=== PATIENT | female | born 1980 | race African-American/Black ===

== ENCOUNTER 2016-10-01 13:34 | Emergency (ER) | payer OTHER ==
[~2016-10-01] VITALS: Ht 152.4 cm; Wt 73.0 kg
[~2016-10-01 13:34] MED LIST: CLIN1CAP5 PO; HYDR-3533 PO; IBUP800T23 PO; METF-324 PO; MICO1CRE2 VAGINAL
[2016-10-01 13:36] VITALS: BP 128/80; PULSE 94; RESP 12; TEMP 98.1; O2SAT 99
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
[2016-10-01 16:00] LABS: AUTOMATED NEUTROPHIL # 2.8 TH/MM3 (1.8-7.7); BASOPHIL # 0.1 TH/MM3 (0-0.2); BASOPHIL % 1.7 % (0.0-2.0); EOSINOPHIL # 0.1 TH/MM3 (0-0.4); EOSINOPHIL % 1.4 % (0.0-4.0); HEMATOCRIT 41.6 % (35.0-46.0); HEMO FLAGS DIFF FINAL; LYMPH % 39.8 % (9.0-44.0); LYMPHOCYTE # 2.2 TH/MM3 (1.0-4.8); MEAN CELL VOLUME 86.3 FL (80.0-100.0); MEAN CORPUSCULAR HEMOGLOBIN 28.4 PG (27.0-34.0); MEAN CORPUSCULAR HGB CONC 32.9 % (32.0-36.0); MONO % 6.3 % (0.0-8.0); NEUT % 50.8 % (16.0-70.0); PLATELET COUNT 171 TH/MM3 (150-450); RED BLOOD COUNT 4.82 MIL/MM3 (4.00-5.30); RED CELL DISTRIBUTION WIDTH 13.6 % (11.6-17.2); WHITE BLOOD COUNT 5.5 TH/MM3 (4.0-11.0)
[2016-10-01 16:11] LABS: BLOOD, URINE NEG (NEG); GLUCOSE,URINE 1000 mg/dL (NEG); KETONE, URINE 10 mg/dL (NEG); NITRITE,URINE NEG (NEG); PH, URINE 5.5 (5.0-8.5); SQUAMOUS EPITHELIAL CELL URINE 1 /hpf (0-5); URINE COLOR COLORLESS (YELLW/STRAW)
[2016-10-01 16:12] LABS: COMMENT (UR) CULT NOT INDICATED; CULTURE IF INDICATED CULT NOT INDICATED
[2016-10-01 16:40] LABS: BICARBONATE 25.1 MEQ/L (21.0-32.0); POTASSIUM 4.5 MEQ/L (3.5-5.1)
[2016-10-01 16:51] VITALS: BP 154/99; PULSE 82; RESP 18; TEMP 99; O2SAT 98
[2016-10-01] MEDS ORDERED: ONDANSETRON HCL 4 MG/2 ML VIAL IV PUSH ONE (18:30)
[2016-10-01] MEDS ORDERED: INSULIN HUMAN REGULAR 1,000 UNITS/10 ML VIAL IV PUSH ONE (18:30)
[2016-10-01] MEDS ORDERED: SODIUM CHLOR 0.9% 1000 ML INJ 1,000 ML IV ONE ×2 (18:30→18:45)
[2016-10-01] MEDS ORDERED: KETOROLAC TROMETHAMINE 30 MG/ML (IVP) VIAL IV PUSH ONE (18:45)
--- NOTE | 2016-10-01 19:12 | PD ---
HPI Chief Complaint: Abdominal Pain Time Seen by Provider: 17:15 Travel History International Travel<30 days: No Contact w/Intl Traveler<30days: No Traveled to known affect area: No History of Present Illness HPI 36-year-old woman presents emergent Venus abdominal pain or back pain ongoing for the past several weeks, worsening over the last week or so. Increased voiding. Initially denied vaginal discharge, now describes she does have some vaginal discomfort a little bit of abnormal discharge. Pain is pretty diffuse. No diarrhea. No abdominal surgical service 2 previous C-sections. Sex active with men only, 3 partners in the past 6 months. No history of STDs. She has diabetes, was prescribed insulin and metformin, she's not been taking either one for months. She states she tried a couple shots of insulin couple days ago began feeling really helped. She does have any money for her glucometer. History Past Medical History Narrative Medical Hypertension Diabetes Bipolar LMP: 09/07 Menopausal: No : 5 Para: 4 Social History Alcohol Use: Yes (OCC) Tobacco Use: Yes (1 PPD) Allergies-Medications (Allergen,Severity, Reaction): Coded Allergies: Haloperidol (Verified Allergy, Severe, Swelling, 10/01/16) Latuda (Verified Allergy, Severe, 10/01/16) "TONGUE SWELLS UP""GET DELUSIONAL" Prolixin (Verified Allergy, Severe, SWELLING, 10/01/16) Prozac (Verified Allergy, Severe, Swelling, 10/01/16) *MDRO Multi-Drug Resistant Organism (Verified Adverse Reaction, Unknown, ) MRSA (groin-09/12/16) Reported Meds & Prescriptions Reported Meds & Active Scripts Active Lortab (Hydrocodone-Acetaminophen) 5-325 Mg Tab 1 Tab PO Q6H PRN Ibuprofen 800 Mg Tab 800 Mg PO Q8H PRN Monistat 3 Vaginal Cream (Miconazole 3 Vaginal Cream) 4 % Cream 1 Appl VAGINAL HS Clindamycin (Clindamycin HCl) 150 Mg Cap 300 Mg PO Q8HR Metformin ER 24 HR (Metformin HCl) 1,000 Mg Tab 1,000 Mg PO BIDPC Review of Systems Except as stated in HPI: all other systems reviewed are Neg Physical Exam Narrative GENERAL: 36 year-old woman, obese, no acute distress. SKIN: Warm and dry. HEAD: Atraumatic. Normocephalic. CARDIOVASCULAR: Regular rate and rhythm. No murmur appreciated. RESPIRATORY: No accessory muscle use. Clear to auscultation. Breath sounds equal bilaterally. GASTROINTESTINAL: Abdomen soft, non-tender, nondistended. Hepatic and splenic margins not palpable. MUSCULOSKELETAL: No obvious deformities. No clubbing. No cyanosis. No edema. NEUROLOGICAL: Awake and alert. No obvious cranial nerve deficits. Motor grossly within normal limits. Normal speech. PSYCHIATRIC: Appropriate mood and affect; insight and judgment normal. PELVIC: Normal external female genitalia. Scant white vaginal discharge. Minimal pelvic tenderness but no obvious cervical motion tenderness pelvic masses or uterine enlargement. Data Data Last Documented VS Vital Signs Date Time Temp Pulse Resp B/P Pulse Ox O2 Delivery O2 Flow Rate FiO2 10/01/16 16:51 99.0 82 18 154/99 98 Room Air Orders Urinalysis - C+S If Indicated (10/01/16 15:26) Ed Urine Pregnancytest Poc (10/01/16 15:26) Complete Blood Count With Diff (10/01/16 15:28) Basic Metabolic Panel (Bmp) (10/01/16 15:28) Sodium Chlor 0.9% 1000 Ml Inj (Ns 1000 M (10/01/16 18:30) Insulin Human Regular Inj (Novolin R Inj (10/01/16 18:30) Ondansetron Inj (Zofran Inj) (10/01/16 18:30) Ketorolac Inj (Toradol Inj) (10/01/16 18:45) Sodium Chlor 0.9% 1000 Ml Inj (Ns 1000 M (10/01/16 18:45) Gc And Chlamydia Pcr (10/01/16 18:43) Wet Prep Profile (10/01/16 18:43) Labs Laboratory Tests Test 10/01/16 15:40 White Blood Count 5.5 TH/MM3 Red Blood Count 4.82 MIL/MM3 Hemoglobin 13.7 GM/DL Hematocrit 41.6 % Mean Corpuscular Volume 86.3 FL Mean Corpuscular Hemoglobin 28.4 PG Mean Corpuscular Hemoglobin 32.9 % Concent Red Cell Distribution Width 13.6 % Platelet Count 171 TH/MM3 Mean Platelet Volume 9.8 FL Neutrophils (%) (Auto) 50.8 % Lymphocytes (%) (Auto) 39.8 % Monocytes (%) (Auto) 6.3 % Eosinophils (%) (Auto) 1.4 % Basophils (%) (Auto) 1.7 % Neutrophils # (Auto) 2.8 TH/MM3 Lymphocytes # (Auto) 2.2 TH/MM3 Monocytes # (Auto) 0.3 TH/MM3 Eosinophils # (Auto) 0.1 TH/MM3 Basophils # (Auto) 0.1 TH/MM3 CBC Comment DIFF FINAL Differential Comment Urine Color COLORLESS Urine Turbidity CLEAR Urine pH 5.5 Urine Specific [place] 1.026 Urine Protein NEG mg/dL Urine Glucose (UA) 1000 mg/dL Urine Ketones 10 mg/dL Urine Occult Blood NEG Urine Nitrite NEG Urine Bilirubin NEG Urine Urobilinogen LESS THAN 2.0 MG/DL Urine Leukocyte Esterase NEG Urine RBC LESS THAN 1 /hpf Urine WBC 3 /hpf Urine Squamous Epithelial 1 /hpf Cells Microscopic Urinalysis Comment CULT NOT INDICATED Sodium Level 127 MEQ/L Potassium Level 4.5 MEQ/L Chloride Level 92 MEQ/L Carbon Dioxide Level 25.1 MEQ/L Anion Gap 10 MEQ/L Blood Urea Nitrogen 9 MG/DL Creatinine 1.13 MG/DL Estimat Glomerular Filtration 66 ML/MIN Rate Random Glucose 658 MG/DL Calcium Level 9.3 MG/DL [facility] Medical Decision Making Medical Screen Exam Complete: Yes Emergency Medical Condition: Yes Interpretation(s) CBC unremarkable BMP remarkable for glucose 658 UA unremarkable Differential Diagnosis Abdominal pain, PID, UTI, dehydration, uncontrolled diabetes Narrative Course Medical decision making 36-year-old woman diabetes uncontrolled not taking her medications presents with diffuse pain including mostly the lower abdomen. Just with some vaginal discharge. She high risk for infection because of her uncontrolled diabetes. We'll check pelvic, insulin, IV fluids, reassess. Diagnosis Primary Impression: Diabetes Qualified Code: E11.65 - Type 2 diabetes mellitus with hyperglycemia, with long-term current use of insulin Additional Impression: Dehydration Med/Other Pt SpecificInfo: Prescription(s) given Condition: Jose Alberto Ji MD Oct 01, 2016 19:12
--- NOTE | 2016-10-01 19:26 | PD ---
Data Data Last Documented VS Vital Signs Date Time Temp Pulse Resp B/P Pulse Ox O2 Delivery O2 Flow Rate FiO2 10/01/16 21:04 73 18 160/90 98 10/01/16 16:51 99.0 Room Air Orders Urinalysis - C+S If Indicated (10/01/16 15:26) Ed Urine Pregnancytest Poc (10/01/16 15:26) Complete Blood Count With Diff (10/01/16 15:28) Basic Metabolic Panel (Bmp) (10/01/16 15:28) Sodium Chlor 0.9% 1000 Ml Inj (Ns 1000 M (10/01/16 18:30) Insulin Human Regular Inj (Novolin R Inj (10/01/16 18:30) Ondansetron Inj (Zofran Inj) (10/01/16 18:30) Ketorolac Inj (Toradol Inj) (10/01/16 18:45) Sodium Chlor 0.9% 1000 Ml Inj (Ns 1000 M (10/01/16 18:45) Gc And Chlamydia Pcr (10/01/16 18:43) Wet Prep Profile (10/01/16 18:43) Acetaminophen (Tylenol) (10/01/16 20:30) Labs Laboratory Tests Test 10/01/16 10/01/16 15:40 19:15 White Blood Count 5.5 TH/MM3 Red Blood Count 4.82 MIL/MM3 Hemoglobin 13.7 GM/DL Hematocrit 41.6 % Mean Corpuscular Volume 86.3 FL Mean Corpuscular Hemoglobin 28.4 PG Mean Corpuscular Hemoglobin 32.9 % Concent Red Cell Distribution Width 13.6 % Platelet Count 171 TH/MM3 Mean Platelet Volume 9.8 FL Neutrophils (%) (Auto) 50.8 % Lymphocytes (%) (Auto) 39.8 % Monocytes (%) (Auto) 6.3 % Eosinophils (%) (Auto) 1.4 % Basophils (%) (Auto) 1.7 % Neutrophils # (Auto) 2.8 TH/MM3 Lymphocytes # (Auto) 2.2 TH/MM3 Monocytes # (Auto) 0.3 TH/MM3 Eosinophils # (Auto) 0.1 TH/MM3 Basophils # (Auto) 0.1 TH/MM3 CBC Comment DIFF FINAL Differential Comment Urine Color COLORLESS Urine Turbidity CLEAR Urine pH 5.5 Urine Specific [place] 1.026 Urine Protein NEG mg/dL Urine Glucose (UA) 1000 mg/dL Urine Ketones 10 mg/dL Urine Occult Blood NEG Urine Nitrite NEG Urine Bilirubin NEG Urine Urobilinogen LESS THAN 2.0 MG/DL Urine Leukocyte Esterase NEG Urine RBC LESS THAN 1 /hpf Urine WBC 3 /hpf Urine Squamous Epithelial 1 /hpf Cells Microscopic Urinalysis Comment CULT NOT INDICATED Sodium Level 127 MEQ/L Potassium Level 4.5 MEQ/L Chloride Level 92 MEQ/L Carbon Dioxide Level 25.1 MEQ/L Anion Gap 10 MEQ/L Blood Urea Nitrogen 9 MG/DL Creatinine 1.13 MG/DL Estimat Glomerular Filtration 66 ML/MIN Rate Random Glucose 658 MG/DL Calcium Level 9.3 MG/DL Clue Cells (Wet Prep) NONE SEEN Vaginal Trichomonas (Wet Prep) NONE SEEN Vaginal Yeast (Wet Prep) NONE SEEN Chlamydia trachomatis DNA NOT DETECTED (PCR) Neisseria gonorrhoeae DNA NOT DETECTED (PCR) MDM Medical Record Reviewed: Yes Supervised Visit with TIFFANIE: No Narrative Course During the course of the patients emergency department visit, the patients history, examination, and differential diagnosis were reviewed with the patient. The patient had IV access obtained and blood work sent for analysis. The patient's case was checked out to me by Dr. Oliveira who requested that I review the patient's laboratory studies and continued to work on improving the patient's hyperglycemia related to medication noncompliance. The patient had a pelvic examination done by him prior to the conclusion of his shift. The patient was provided Toradol for her pelvic pain. The patient was given regular insulin 10 units IV 1 prior to my initial evaluation, normal saline was written to be administered 1 L bolus 2. The patients laboratory studies were reviewed and remarkable for a CBC that is unremarkable. CMP is remarkable for sodium of 127, chloride 92, creatinine 1.13 , glucose 658 which is most likely causing a pseudohyponatremia, urinalysis shows 1000 glucose 10 ketones, wet prep is negative, GC and chlamydia are negative. The patient's blood sugar began to improve. The patient's blood sugar came down to 160. She was given something to eat. The patient was also even Tylenol for reported back pain. The patient was instructed regarding the importance of following up with a primary care physician on a regular basis and taking her insulin and metformin on a regular basis. The patient was given a refill of metformin, insulin, an Accu-Chek machine was strips. The patient is resting comfortably and feels better, is alert and in no distress. The patients results and examination findings were discussed with her. The repeat examination is unremarkable and benign. The history, exam, diagnostic testing, and current condition do not suggest any significant pathology to warrant further testing, continued ED treatment, admission, or surgical evaluation at this point. The vital signs have been stable. The patient does not have uncontrollable pain, intractable vomiting, or other significant symptoms. The patient's condition is stable and appropriate for discharge. The patient will pursue further outpatient evaluation with a primary care physician or other designated or consulting physician as indicated in the discharge instructions. The patient expressed understanding and was agreeable with this plan. Diagnosis Primary Impression: Diabetes Qualified Code: E11.65 - Type 2 diabetes mellitus with hyperglycemia, with long-term current use of insulin Additional Impression: Dehydration Referrals: Primary Care Physician 2 days Patient Instructions: Dehydration (ED), Diabetic Hyperglycemia (ED), General Instructions Med/Other Pt SpecificInfo: Prescription(s) given Scripts Accu-Chek Strips Janie Plus 1 Paola Paola #90 STRIPS .XX DIRECTED Ref 0 Prov:Ernestina Flanagan MD 10/01/16 Accu-Chek Janie Glucose Monitor 1 Mis Mis #1 KIT .XX DIRECTED Ref 0 Prov:Ernestina Flanagan MD 10/01/16 Insulin Lispro (Human) Inj (Humalog Inj)1,000 Unit/10 Ml Vial1-9 Units SQ ac tid 30 Days Ref 0 Max dose at bedtime:( )units; sugars< 70,(0)units; sugars 150-199,(1)unit; sugars 200-249,(3)units; sugars 250-299,(5)units; sugars 300-349,(7)units; sugars more than 349,(9)units. Prov:Ernestina Flanagan MD 10/01/16 Metformin 1,000 Mg Tab1,000 Mg PO BIDPC #60 TAB Ref 0 With meals Prov:Ernestina Flanagan MD 10/01/[address] (Naproxen EC)500 Mg [id number] Mg PO BID PRN (PAIN GREATER THAN 5) # 10 TAB Ref 0 Prov:Ernestina Flanagan MD 10/01/16 Disposition: 01 DISCHARGE HOME Condition: Stable Ernestina Flanagan MD Oct 01, 2016 19:26
[2016-10-01] MEDS ORDERED: ACETAMINOPHEN 325 MG TAB PO ONE (20:30)
[2016-10-01] MEDS ORDERED: NAPR1TAB34 PO (20:32)
[2016-10-01] MEDS ORDERED: HUMALOG SQ (20:36)
[2016-10-01] MEDS ORDERED: METF1000 PO (20:36)
[2016-10-01 21:04] VITALS: BP 160/90
[2016-10-01] MEDS ORDERED: BLOO1MIS29 (21:05)
[2016-10-01] MEDS ORDERED: ACCUTES19 (21:09)
[2016-10-01 21:41] LABS: CHLAMYDIA PCR NOT DETECTED (NOT DETECT); NEISSERIA PCR NOT DETECTED (NOT DETECT)
== END 2016-10-01 21:21 | disposition home or self-care (01) ==
LOC: NEPE 13:34
DX: E11.9 Type 2 diabetes mellitus without complications (principal); E86.0 Dehydration; I10 Essential (primary) hypertension; F17.210 Nicotine dependence, cigarettes, uncomplicated; F12.90 Cannabis use, unspecified, uncomplicated; F14.90 Cocaine use, unspecified, uncomplicated
CPT/HCPCS: 80048; 81001; 84703; 85025; 87210; 87491; 87591; 96361; 96374; 96375; 99284; J1815; J1885; J2405; J7030

== ENCOUNTER 2017-06-08 18:11 | Emergency (ER) | payer OTHER ==
[~2017-06-08] VITALS: Ht 154.9 cm; Wt 70.2 kg
[~2017-06-08 18:11] MED LIST changes: +ACCUTES19; +BLOO1MIS29; +HUMALOG SQ; -METF-324 PO; +METF1000 PO; +NAPR1TAB34 PO
[2017-06-08 18:12] VITALS: BP 149/95; PULSE 86; RESP 20; TEMP 98.7; O2SAT 100
[2017-06-08] MEDS ORDERED: PSYCH MEDS (18:34)
[2017-06-08] MEDS ORDERED: SODIUM CHLOR 0.9% 1000 ML INJ 1,000 ML IV SCH (18:48)
[2017-06-08] MEDS ORDERED: ONDANSETRON HCL 4 MG/2 ML VIAL IVP ONE (19:00)
[2017-06-08] MEDS ORDERED: MORPHINE SULFATE 4 MG/ML INJ IV PUSH ONE ×2 (19:00→22:00)
[2017-06-08 19:05] VITALS: RESP 19; O2SAT 96
[2017-06-08 19:25] LABS: AUTOMATED NEUTROPHIL # 3.9 TH/MM3 (1.8-7.7); BASOPHIL # 0.1 TH/MM3 (0-0.2); BASOPHIL % 0.8 % (0.0-2.0); EOSINOPHIL # 0.1 TH/MM3 (0-0.4); EOSINOPHIL % 1.3 % (0.0-4.0); HEMO FLAGS DIFF FINAL; LYMPH % 45.8 % (9.0-44.0); LYMPHOCYTE # 3.8 TH/MM3 (1.0-4.8); MEAN CELL VOLUME 85.8 FL (80.0-100.0); MONO % 5.2 % (0.0-8.0); NEUT % 46.9 % (16.0-70.0); PLATELET COUNT 199 TH/MM3 (150-450); RED BLOOD COUNT 4.89 MIL/MM3 (4.00-5.30); RED CELL DISTRIBUTION WIDTH 12.7 % (11.6-17.2); WHITE BLOOD COUNT 8.3 TH/MM3 (4.0-11.0)
[2017-06-08 19:28] LABS: BLOOD, URINE NEG (NEG); COMMENT (UR) CULT NOT INDICATED; CULTURE IF INDICATED CULT NOT INDICATED; GLUCOSE,URINE NEG (NEG); KETONE, URINE NEG (NEG); NITRITE,URINE NEG (NEG); PH, URINE 6.5 (5.0-8.5); SQUAMOUS EPITHELIAL CELL URINE 1 /hpf (0-5); URINE COLOR LIGHT-YELLOW (YELLW/STRAW)
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
[2017-06-08] MEDS ORDERED: cefTRIAXone INJ 1,000 MG in SODIUM CHLORIDE 0.9% INJ 100 ML IV ONE (20:15)
[2017-06-08] MEDS ORDERED: AZITHROMYCIN INJ 500 MG in SODIUM CHLOR 0.9% 250 ML INJ 250 ML IV ONE (20:15)
--- NOTE | 2017-06-08 20:17 | PD ---
HPI Chief Complaint: Medical Clearance Time Seen by Provider: 18:31 Travel History International Travel<30 days: No Contact w/Intl Traveler<30days: No Traveled to known affect area: No History of Present Illness HPI 36-year-old female that presents to the ED for evaluation of multiple complaints. For the most part her main complaint is neck pain and headache as well as back pain with body aches since 3 weeks now. Per patient nothing makes it better. Per patient the pain is severe and 7 out of 10. States that she's been having some congestion but no cough. No urinary symptoms. She states having some abdominal pain and some diarrhea on occasion. She has a significant history of psychiatric illness including schizophrenia and bipolar and takes medications including lithium. Per patient she's been having to urinate more frequently but denies any dysuria. She denies any bowel movement issues. Denies any blurry vision or double vision. She has not seen anybody for this. She denies any recent travel. No blurry vision or double vision. No leg pain or arm pain but states having body aches all over. Denies any fevers chills or sweats. She does have multiple allergies to medications for psychiatric illnesses. PFSH Past Medical History Blood Disorders: Yes Anxiety: Yes Depression: Yes Heart Rhythm Problems: No Cancer: No Cardiovascular Problems: Yes (HTN) High Cholesterol: No Chemotherapy: No Chest Pain: No Congestive Heart Failure: No Diabetes: Yes Patient Takes Glucophage: Yes (METFORMIN ) Diminished Hearing: No Endocrine: No Gastrointestinal Disorders: Yes (GALLSTONES) Genitourinary: No Hypertension: Yes Immune Disorder: No Implanted Vascular Access Dvce: No Kidney Stones: Yes Musculoskeletal: No Neurologic: No Psychiatric: Yes Reproductive: No Immunizations Current: Yes Radiation Therapy: No Schizophrenia: Yes Thyroid Disease: No ?: Unknown LMP: 2 MONTHS AGO Menopausal: No : 5 Para: 4 Miscarriage: 1 : 0 Past Surgical History Section: Yes (One in 2004, 2013) Genitourinary Surgery: Yes (2004-Kidney stones) Gynecologic Surgery: Yes (c section with third AND 4TH ) Other Surgery: Yes (see H/ P) Social History Alcohol Use: Yes (OCC) Tobacco Use: Yes (1 PPD) Substance Use: Yes (MARIJUANA AND COCAINE) Allergies-Medications (Allergen,Severity, Reaction): Coded Allergies: fluoxetine (Unverified Allergy, Severe, Swelling, 06/08/17) fluphenazine (Unverified Allergy, Severe, SWELLING, 06/08/17) haloperidol (Unverified Allergy, Severe, Swelling, 06/08/17) lurasidone (Unverified Allergy, Severe, 06/08/17) "TONGUE SWELLS UP""GET DELUSIONAL" *MDRO Multi-Drug Resistant Organism (Verified Adverse Reaction, Unknown, ) 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 Metformin (Metformin HCl) 1,000 Mg Tab 1,000 Mg PO BIDPC With meals Ibuprofen 800 Mg Tab 800 Mg PO Q8H PRN Reported [Psych Meds ] Review of Systems Except as stated in HPI: all other systems reviewed are Neg Physical Exam Narrative GENERAL: SKIN: Warm and dry. HEAD: Atraumatic. Normocephalic. EYES: Pupils equal and round. No scleral icterus. No injection or drainage. ENT: No nasal bleeding or discharge. Mucous membranes pink and moist. Tongue is midline. No uvula deviation. TMs are clear with no sign of infection or perforation. NECK: Trachea midline. No JVD. CARDIOVASCULAR: Regular rate and rhythm. No murmurs, S3, S4. RESPIRATORY: No accessory muscle use. Clear to auscultation. Breath sounds equal bilaterally. GASTROINTESTINAL: Abdomen soft, mild tenderness to palpation on the abdomen throughout., nondistended. Hepatic and splenic margins not palpable. MUSCULOSKELETAL: Extremities without clubbing, cyanosis, or edema. No obvious deformities. Full range of motion of the upper and lower extremities bilaterally. 2+ pulses bilaterally. Patient does appear to have some tenderness to palpation on the lower back and on the spinal processes. She is able to move the neck fully and does not appear to be in acute distress. Straight leg test negative bilaterally. NEUROLOGICAL: Awake and alert. No obvious cranial nerve deficits. Motor grossly within normal limits. Five out of 5 muscle strength in the arms and legs. Normal speech. PSYCHIATRIC: Appropriate mood and affect; insight and judgment normal. Data Data Last Documented VS Vital Signs Date Time Temp Pulse Resp B/P (MAP) Pulse Ox O2 Delivery O2 Flow Rate FiO2 06/08/17 22:16 65 16 142/94 (110) 100 Room Air 06/08/17 18:12 98.7 Orders Orders Complete Blood Count With Diff (06/08/17 18:44) Comprehensive Metabolic Panel (06/08/17 18:44) Blood Culture (06/08/17 18:44) Lipase (06/08/17 18:44) Urinalysis - C+S If Indicated (06/08/17 18:44) Magnesium (Mg) (06/08/17 18:44) Olar (Li) (06/08/17 18:44) Thyroid Stimulating Hormone (06/08/17 18:44) Chest, Single Ap (06/08/17 18:44) Ct Abd/Pel W Iv Contrast(Rout) (06/08/17 18:44) Iv Access Insert/Monitor (06/08/17 18:44) Ecg Monitoring (06/08/17 18:44) Oximetry (06/08/17 18:44) Lactic Acid (06/08/17 18:44) Spine, Cervical - Ltd (Ap&Lat) (06/08/17 ) Spine, Thoracic - Lateral Only (06/08/17 ) Spine, Lumbar - Ltd (Ap & Lat) (06/08/17 ) Ct Brain W/O Iv Contrast(Rout) (06/08/17 ) Morphine Inj (Morphine Inj) (06/08/17 19:00) Ondansetron Inj (Zofran Inj) (06/08/17 19:00) Sodium Chlor 0.9% 1000 Ml Inj (Ns 1000 M (06/08/17 18:48) Ceftriaxone Inj (Rocephin Inj) (06/08/17 20:15) Azithromycin Inj (Zithromax Inj) (06/08/17 20:15) Ed Urine Pregnancytest Poc (06/08/17 20:17) Morphine Inj (Morphine Inj) (06/08/17 22:00) Labs Laboratory Tests Test 06/08/17 18:30 06/08/17 18:45 06/08/17 19:40 06/08/17 21:20 Urine Color LIGHT-YELLOW Urine Turbidity CLEAR Urine pH 6.5 Urine Specific [place] 1.005 Urine Protein NEG mg/dL Urine Glucose (UA) NEG mg/dL Urine Ketones NEG mg/dL Urine Occult Blood NEG Urine Nitrite NEG Urine Bilirubin NEG Urine Urobilinogen LESS THAN 2.0 MG/DL Urine Leukocyte Esterase NEG Urine RBC LESS THAN 1 /hpf Urine WBC LESS THAN 1 /hpf Urine Squamous Epithelial Cells 1 /hpf Microscopic Urinalysis Comment CULT NOT INDICATED White Blood Count 8.3 TH/MM3 Red Blood Count 4.89 MIL/MM3 Hemoglobin 14.7 GM/DL Hematocrit 42.0 % Mean Corpuscular Volume 85.8 FL Mean Corpuscular Hemoglobin 30.0 PG Mean Corpuscular Hemoglobin Concent 35.0 % Red Cell Distribution Width 12.7 % Platelet Count 199 TH/MM3 Mean Platelet Volume 9.7 FL Neutrophils (%) (Auto) 46.9 % Lymphocytes (%) (Auto) 45.8 % Monocytes (%) (Auto) 5.2 % Eosinophils (%) (Auto) 1.3 % Basophils (%) (Auto) 0.8 % Neutrophils # (Auto) 3.9 TH/MM3 Lymphocytes # (Auto) 3.8 TH/MM3 Monocytes # (Auto) 0.4 TH/MM3 Eosinophils # (Auto) 0.1 TH/MM3 Basophils # (Auto) 0.1 TH/MM3 CBC Comment DIFF FINAL Differential Comment Lactic Acid Level 1.3 mmol/L Olar Level 0.2 MEQ/L Total Protein 8.2 GM/DL Alkaline Phosphatase 59 U/L Total Bilirubin 0.5 MG/DL Thyroid Stimulating Hormone 3rd Gen 0.821 uIU/ML MDM Medical Decision Making Medical Screen Exam Complete: Yes Emergency Medical Condition: Yes Medical Record Reviewed: Yes Interpretation(s) CBC Diagram 06/08/17 18:45 Differential Diagnosis Chest pain versus back pain versus acute on chronic pain versus nausea and vomiting versus acute abdomen versus pneumonia versus viral illness versus dehydration versus normal exam Narrative Course 36-year-old female that presents to the ED for evaluation of back pain and body aches as well as headache and diarrhea and abdominal pain. Patient was properly examined and was found to have signs and symptoms which appeared to be more consistent with likely viral illness. I suspect some of her issues might be psychiatric related but she does appear to be somewhat tender on exam. Especially in the abdomen. Labs and imaging were ordered. Patient was given IV pain medications and fluids. Labs and imaging still pending at the time of writing this note. CXR did show so far pneumonia and patient was started on IV antibiotics by me. Case signed out to my attending pending disposition. Philip Jin Jun 08, 2017 20:17
[2017-06-08 20:27] VITALS: BP 135/77; PULSE 77; RESP 18; O2SAT 100
[2017-06-08 22:16] VITALS: BP 142/94; PULSE 65; RESP 16; O2SAT 100
[2017-06-08] MEDS ORDERED: IBUP-232 PO (23:03)
[2017-06-08] MEDS ORDERED: CEFU1TAB20 PO (23:03)
[2017-06-08] MEDS ORDERED: ZITH250T PO (23:03)
--- NOTE | 2017-06-08 23:04 | PD ---
Data Data Last Documented VS Vital Signs Date Time Temp Pulse Resp B/P (MAP) Pulse Ox O2 Delivery O2 Flow Rate FiO2 06/08/17 22:16 65 16 142/94 (110) 100 Room Air 06/08/17 18:12 98.7 Orders Orders Complete Blood Count With Diff (06/08/17 18:44) Comprehensive Metabolic Panel (06/08/17 18:44) Blood Culture (06/08/17 18:44) Lipase (06/08/17 18:44) Urinalysis - C+S If Indicated (06/08/17 18:44) Magnesium (Mg) (06/08/17 18:44) [place] (Li) (06/08/17 18:44) Thyroid Stimulating Hormone (06/08/17 18:44) Chest, Single Ap (06/08/17 18:44) Ct Abd/Pel W Iv Contrast(Rout) (06/08/17 18:44) Iv Access Insert/Monitor (06/08/17 18:44) Ecg Monitoring (06/08/17 18:44) Oximetry (06/08/17 18:44) Lactic Acid (06/08/17 18:44) Spine, Cervical - Ltd (Ap&Lat) (06/08/17 ) Spine, Thoracic - Lateral Only (06/08/17 ) Spine, Lumbar - Ltd (Ap & Lat) (06/08/17 ) Ct Brain W/O Iv Contrast(Rout) (06/08/17 ) Morphine Inj (Morphine Inj) (06/08/17 19:00) Ondansetron Inj (Zofran Inj) (06/08/17 19:00) Sodium Chlor 0.9% 1000 Ml Inj (Ns 1000 M (06/08/17 18:48) Ceftriaxone Inj (Rocephin Inj) (06/08/17 20:15) Azithromycin Inj (Zithromax Inj) (06/08/17 20:15) Ed Urine Pregnancytest Poc (06/08/17 20:17) Morphine Inj (Morphine Inj) (06/08/17 22:00) Iohexol 350 Inj (Omnipaque 350 Inj) (06/08/17 23:44) Labs Laboratory Tests Test 06/08/17 18:30 06/08/17 18:45 06/08/17 19:40 06/08/17 21:20 Urine Color LIGHT-YELLOW Urine Turbidity CLEAR Urine pH 6.5 Urine Specific [place] 1.005 Urine Protein NEG mg/dL Urine Glucose (UA) NEG mg/dL Urine Ketones NEG mg/dL Urine Occult Blood NEG Urine Nitrite NEG Urine Bilirubin NEG Urine Urobilinogen LESS THAN 2.0 MG/DL Urine Leukocyte Esterase NEG Urine RBC LESS THAN 1 /hpf Urine WBC LESS THAN 1 /hpf Urine Squamous Epithelial Cells 1 /hpf Microscopic Urinalysis Comment CULT NOT INDICATED White Blood Count 8.3 TH/MM3 Red Blood Count 4.89 MIL/MM3 Hemoglobin 14.7 GM/DL Hematocrit 42.0 % Mean Corpuscular Volume 85.8 FL Mean Corpuscular Hemoglobin 30.0 PG Mean Corpuscular Hemoglobin Concent 35.0 % Red Cell Distribution Width 12.7 % Platelet Count 199 TH/MM3 Mean Platelet Volume 9.7 FL Neutrophils (%) (Auto) 46.9 % Lymphocytes (%) (Auto) 45.8 % Monocytes (%) (Auto) 5.2 % Eosinophils (%) (Auto) 1.3 % Basophils (%) (Auto) 0.8 % Neutrophils # (Auto) 3.9 TH/MM3 Lymphocytes # (Auto) 3.8 TH/MM3 Monocytes # (Auto) 0.4 TH/MM3 Eosinophils # (Auto) 0.1 TH/MM3 Basophils # (Auto) 0.1 TH/MM3 CBC Comment DIFF FINAL Differential Comment Lactic Acid Level 1.3 mmol/L [place] Level 0.2 MEQ/L Blood Urea Nitrogen 9 MG/DL Creatinine 0.60 MG/DL Random Glucose 90 MG/DL Total Protein 6.7 GM/DL Albumin 3.0 GM/DL Calcium Level 8.2 MG/DL Magnesium Level 1.7 MG/DL Alkaline Phosphatase 57 U/L Aspartate Amino Transf (AST/SGOT) 20 U/L Alanine Aminotransferase (ALT/SGPT) 24 U/L Total Bilirubin 0.4 MG/DL Sodium Level 139 MEQ/L Potassium Level 4.1 MEQ/L Chloride Level 107 MEQ/L Carbon Dioxide Level 24.6 MEQ/L Anion Gap 7 MEQ/L Estimat Glomerular Filtration Rate 138 ML/MIN Lipase 251 U/L Thyroid Stimulating Hormone 3rd Gen 1.250 uIU/ML [facility] Medical Record Reviewed: Yes Supervised Visit with TIFFANIE: No Interpretation(s) Last Impressions Chest X-Ray 06/08/17 [id number] Signed Impressions: Service Date/Time: Thursday, June 08, 2017 19:00 - CONCLUSION: Mild streaky opacity projected over the right lung base which could represent infiltrate and possible pneumonia. Andi Ny MD Thoracic Spine X-Ray 06/08/17 0000 Signed Impressions: Service Date/Time: Thursday, June 08, 2017 19:08 - CONCLUSION: Lateral exam demonstrate no acute fracture. Andi Ny MD Lumbar Spine X-Ray 06/08/17 0000 Signed Impressions: Service Date/Time: Thursday, June 08, 2017 19:05 - CONCLUSION: Negative trauma study. Andi Ny MD Cervical Spine X-Ray 06/08/17 0000 Signed Impressions: Service Date/Time: Thursday, June 08, 2017 18:59 - CONCLUSION: 1. No acute fracture or malalignment. 2. Degenerative disc change at C4-5 through C6-7 levels. 3. Mild reversal of the normal cervical lordosis. Andi Ny MD Narrative Course During the course of the patients emergency department visit, the patients history, examination, and differential diagnosis were reviewed with the patient. The patient had IV access obtained and blood work sent for analysis. The patient was placed on a plant inspector with oximetry and blood pressure monitoring. The patient was initially seen by Juan Diego, the physician assistant curator. Please see his complete history and physical. The patient's case is checked out to me at the conclusion of this shift with chemistry pending and CT scan of the abdomen and pelvis pending. The patient was initially provided by Philip, Rocephin 1 g IV, Zithromax 500 IV for pneumonia noted on chest x-ray, morphine and Zofran for pain and nausea. Was given normal saline 1 L IV fluid bolus. The patients laboratory studies were reviewed and remarkable for a white count of 8.3, hemoglobin 14.7, platelets 199 with 45.8 lymphocytes, lactic acid is 1.3 , urinalysis is within normal, lithium level 0.2, CMP is unremarkable. Radiology studies were reviewed and remarkable for a chest x-ray that shows mild streaky opacity projected over the right lung base which could represent an infiltrate and possible pneumonia. Cervical spine x-rays revealed no acute fracture or malalignment, degenerative changes are noted. Thoracic spine x- rays lateral exam demonstrate no acute fracture. Lumbar spine x-rays showed no acute abnormality. CT scan of the brain shows no acute intracranial abnormality , mild soft tissue swelling left parietal scalp, CT scan of the abdomen and pelvis shows no acute findings within the abdomen and pelvis. Specifically no obstruction, free fluid or free air, intrauterine device present, mild fatty liver, chronic cystic change in the medial right lung base with opacity that is stable, consideration includes a congenital type of pulmonary sequestration. The patient will be discharged home with a prescription for Ceftin, azithromycin , and ibuprofen for pain. The patient is resting comfortably and feels better, is alert and in no distress. The patients results and examination findings were discussed with the patient. The repeat examination is unremarkable and benign. The history, exam, diagnostic testing, and current condition do not suggest any significant pathology to warrant further testing, continued ED treatment, admission, or surgical evaluation at this point. The vital signs have been stable. The patient does not have uncontrollable pain, intractable vomiting, or other significant symptoms. The patient's condition is stable and appropriate for discharge. The patient will pursue further outpatient evaluation with a primary care physician or other designated or consulting physician as indicated in the discharge instructions. The patient expressed understanding and was agreeable with this plan. Diagnosis Primary Impression: Pneumonia Qualified Codes: J18.1 - Lobar pneumonia, unspecified organism Referrals: [facility] Primary Care Physician 3 days Patient Instructions: Community Acquired Pneumonia (ED), General Instructions Med/Other Pt SpecificInfo: Prescription(s) given Scripts Cefuroxime (Cefuroxime) 500 Mg Tab 500 MG PO BID for Infection, #20 TAB 0 Refills Prov: Ernestina Flanagan MD 06/08/17 Azithromycin (Zithromax) 250 Mg Tab 250 MG PO DAILY for Infection, #4 TAB 0 Refills Prov: Ernestina Flanagan MD 06/08/17 Ibuprofen (Ibuprofen) 600 Mg Tab 600 MG PO Q8H Y for PAIN, #12 TAB 0 Refills Prov: Ernestina Flanagan MD 06/08/17 Disposition: 01 DISCHARGE HOME Condition: Stable Ernestina Flanagan MD Jun 08, 2017 23:04
[2017-06-08 23:25] LABS: ANION GAP 7 MEQ/L (5-15); AST (GOT) 20 U/L (15-37); BICARBONATE 24.6 MEQ/L (21.0-32.0); BLOOD UREA NITROGEN 9 MG/DL (7-18); CHLORIDE 107 MEQ/L (98-107); GLOMERULAR FILTRATION RATE 138 ML/MIN (>89); MAGNESIUM 1.7 MG/DL (1.5-2.5); POTASSIUM 4.1 MEQ/L (3.5-5.1); SODIUM (NA) 139 MEQ/L (136-145)
[2017-06-08 23:40] LABS: ALKALINE PHOSPHATASE 57 U/L (45-117)
[2017-06-08 23:41] LABS: ALT (GPT) 24 U/L (10-53)
[2017-06-08 23:42] LABS: TOTAL BILIRUBIN ADULT 0.4 MG/DL (0.2-1.0)
[2017-06-08] MEDS ORDERED: IOHEXOL 350 MG/ML 10 ML VIAL (for RAD DIAG) IVCONTRAST ONE (23:44)
--- NOTE | 2017-06-08 23:54 | RADRPT ---
EXAM DATE/TIME: 06/08/2017 23:46 [facility] COMPARISON: No previous studies available for comparison. INDICATIONS : Worsening head pain over several weeks. RADIATION DOSE: 47.75 CTDIvol (mGy) MEDICAL HISTORY : Cardiovascular disease. Hypertension. Renal calculi.Diabetes. SURGICAL HISTORY : section. ENCOUNTER: Initial ACUITY: 2 weeks PAIN SCALE: 10/10 LOCATION: cranial TECHNIQUE: Multiple contiguous axial images were obtained of the head. Using automated exposure control and adj ustment of the mA and/or kV according to patient size, radiation dose was kept as low as reasonably a chievable to obtain optimal diagnostic quality images. DICOM format image data is available electro nically for review and comparison. FINDINGS: CEREBRUM: The ventricles are normal for age. No evidence of midline shift, mass lesion, hemorrhage or acute in farction. No extra-axial fluid collections are seen. POSTERIOR FOSSA: The cerebellum and brainstem are intact. The 4th ventricle is midline. The cerebellopontine angle i s unremarkable. EXTRACRANIAL: The visualized portion of the orbits is intact. SKULL: The calvaria is intact. No evidence of skull fracture. CONCLUSION: 1. No acute intracranial abnormalities. Mild soft tissue swelling left parietal scalp. Sukumar Boateng MD on June 08, 2017 at 23:50 Board Certified Radiologist. This report was verified electronically.
--- NOTE | 2017-06-09 00:22 | RADRPT ---
EXAM DATE/TIME: 06/08/2017 23:49 [facility] COMPARISON: No previous studies available for comparison. INDICATIONS : Abdominal pain with nausea and vomiting. IV CONTRAST: 95 cc Omnipaque 350 (iohexol) IV ORAL CONTRAST: No oral contrast ingested. RADIATION DOSE: 7.63 CTDIvol (mGy) MEDICAL HISTORY : Cardiovascular disease. Hypertension. Renal calculi.Diabetes. SURGICAL HISTORY : section. ENCOUNTER: Initial ACUITY: 4 - 6 days PAIN SCALE: 10/10 LOCATION: Bilateral abdomen TECHNIQUE: Volumetric scanning of the abdomen and pelvis was performed. Using automated exposure control and ad justment of the mA and/or kV according to patient size, radiation dose was kept as low as reasonably achievable to obtain optimal diagnostic quality images. DICOM format image data is available electro nically for review and comparison. FINDINGS: Lipase is demonstrated chronic cystic changes and soft tissue density medial right lung base. Finding s similar to multiple prior other CT examinations. A pulmonary sequestration can give this appearance . Left lung bases clear except minimal atelectasis. Fatty liver. Spleen, adrenals, left kidney and pancreas unremarkable. Tiny nonobstructing right renal calculus. No free fluid. No bowel obstruction. No adenopathy. Intrauterine device is present. Appendix appears normal. CONCLUSION: 1. No acute findings within the abdomen and pelvis. Specifically no obstruction, free fluid or free a ir. Intrauterine device present. Mild fatty liver. Chronic cystic changes medial right lung base with opacity, stable. Consideration includes an congeni ba type pulmonary sequestration. Sukumar Boateng MD on June 09, 2017 at 0:15 Board Certified Radiologist. This report was verified electronically.
[2017-06-09 00:51] VITALS: BP 137/94
== END 2017-06-09 01:01 | disposition home or self-care (01) ==
LOC: NEPE 18:11
DX: J18.1 Lobar pneumonia, unspecified organism (principal); I10 Essential (primary) hypertension; E11.9 Type 2 diabetes mellitus without complications; F17.210 Nicotine dependence, cigarettes, uncomplicated; Z87.442 Personal history of urinary calculi
CPT/HCPCS: 70450; 71010; 72020; 72040; 72100; 74177; 80053; 80178; 81001; 83605; 83690; 83735; 84443; 84703; 85025; 87040; 96361; 96365; 96367; 96375; 96376; 99285; J0456; J0696; J2270; J2405; J7030; J7050; Q9967

== ENCOUNTER 2017-07-28 20:53 | Emergency (ER) | payer OTHER ==
[~2017-07-28 20:53] MED LIST changes: -BLOO1MIS29; +CEFU1TAB20 PO; -CLIN1CAP5 PO; -HYDR-3533 PO; +IBUP-232 PO; -IBUP800T23 PO; -MICO1CRE2 VAGINAL; -NAPR1TAB34 PO; +PSYCH MEDS; +ZITH250T PO
[2017-07-28 20:54] VITALS: BP 160/91; PULSE 88; RESP 18; O2SAT 98
[2017-07-28] MEDS ORDERED: TETANUS/DIPHTHERIA TOXOID ADULT 0.5 ML VIAL IM ONE (22:30)
[2017-07-28] MEDS ORDERED: SODIUM CHLORIDE 0.9% FLUSH 10 ML FLUSH IVF PRN (22:30)
[2017-07-28] MEDS ORDERED: MORPHINE SULFATE 4 MG/ML INJ IV PUSH ONE (22:30)
[2017-07-28] MEDS ORDERED: LIDOCAINE HCL 1% 20 ML VIAL INFIL ONE (22:30)
[2017-07-28] MEDS ORDERED: ONDANSETRON HCL 4 MG/2 ML VIAL IV PUSH ONE (22:30)
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
[2017-07-28] MEDS ORDERED: AUGM875T3 PO (23:14)
[2017-07-28] MEDS ORDERED: NORC5TAB PO (23:14)
[2017-07-28] MEDS ORDERED: MORPHINE SULFATE 4 MG/ML INJ IM ONE (23:15)
[2017-07-28] MEDS ORDERED: ONDANSETRON ODT 4 MG TAB PO ONE (23:15)
[2017-07-28] MEDS ORDERED: LIDOCAINE 1%/EPINEPHrine 1:100,000 SOLN 20 ML VIAL ONE (23:39)
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
== END 2017-07-29 02:58 | disposition home or self-care (01) ==
LOC: NEPD 20:53
DX: S01.511A Laceration without foreign body of lip, initial encounter (principal); S00.11XA Contusion of right eyelid and periocular area, initial encounter; I10 Essential (primary) hypertension; E11.9 Type 2 diabetes mellitus without complications; F20.9 Schizophrenia, unspecified; Y33.XXXA Other specified events, undetermined intent, initial encounter; Z72.0 Tobacco use; Z23 Encounter for immunization
CPT/HCPCS: 12011; 70450; 70486; 73130; 90471; 90714; 96374; 99285; J2270

== ENCOUNTER 2017-08-12 08:24 | Emergency (ER) | payer OTHER ==
[~2017-08-12] VITALS: Ht 152.4 cm; Wt 70.0 kg
[~2017-08-12 08:24] MED LIST changes: +AUGM875T3 PO; -CEFU1TAB20 PO; -IBUP-232 PO; +NORC5TAB PO; -ZITH250T PO
[2017-08-12 08:26] VITALS: BP 150/93; PULSE 95; RESP 16; TEMP 98.6; O2SAT 98
--- NOTE | 2017-08-12 08:34 | PD ---
HPI Chief Complaint: Foreign Body Time Seen by Provider: 08:32 Travel History International Travel<30 days: No Contact w/Intl Traveler<30days: No Traveled to known affect area: No History of Present Illness HPI 36-year-old female presents to the emergency department complaining of a tampon being stuck in her vagina for approximately 8-10 hours. Patient states that she had a tampon placed last night and as been unable to remove it since then. States that she has tried a couple of objects to include a spoon handle to remove the object. Patient denies pain, fever, chills, abdominal pain, urinary discomfort at this time. States that this is never happened before. She is currently on her menstrual cycle. PFSH Past Medical History Blood Disorders: Yes Anxiety: Yes Depression: Yes Heart Rhythm Problems: No Cancer: No Cardiovascular Problems: Yes (HTN) High Cholesterol: No Chemotherapy: No Chest Pain: No Congestive Heart Failure: No Diabetes: Yes Diminished Hearing: No Endocrine: No Gastrointestinal Disorders: Yes (GALLSTONES) Genitourinary: No Hypertension: Yes Immune Disorder: No Implanted Vascular Access Dvce: No Kidney Stones: Yes Musculoskeletal: No Neurologic: No Psychiatric: Yes Reproductive: No Immunizations Current: Yes Radiation Therapy: No Schizophrenia: Yes Thyroid Disease: No ?: Not Menopausal: No : 5 Para: 4 Miscarriage: 1 : 0 Past Surgical History Section: Yes (One in 2004, 2013) Genitourinary Surgery: Yes (2004-Kidney stones) Gynecologic Surgery: Yes (c section with third AND 4TH ) Other Surgery: Yes (see H/ P) Social History Alcohol Use: Yes (OCC) Tobacco Use: Yes (1 PPD) Substance Use: Yes (MARIJUANA AND COCAINE) Allergies-Medications (Allergen,Severity, Reaction): Coded Allergies: fluoxetine (Verified Allergy, Severe, Swelling, 08/12/17) fluphenazine (Verified Allergy, Severe, SWELLING, 08/12/17) haloperidol (Verified Allergy, Severe, Swelling, 08/12/17) lurasidone (Verified Allergy, Severe, 08/12/17) "TONGUE SWELLS UP""GET DELUSIONAL" *MDRO Multi-Drug Resistant Organism (Verified Adverse Reaction, Unknown, 08/12/17) MRSA (groin-09/12/16) Reported Meds & Prescriptions Reported Meds & Active Scripts Active Metronidazole Vaginal Gel 0.75 % Gel 1 Appl VAGINAL HS 5 Days [place] (Hydrocodone-Acetaminophen) 5 Mg-325 Mg Tab 1 Tab PO Q4H PRN Augmentin (Amoxicillin-Clavulanate) 875-125 Mg Tab 1 Tab PO BID Accu-Chek Strips Janie Plus (Blood Glucose Test Strips) 1 Paola Paola 1 Strips .XX DIRECTED Humalog Inj (Insulin Human Lispro) 1,000 Unit/10 Ml Vial 1-9 Units SQ AC TID 30 Days Max dose at bedtime:( )units; sugars< 70,(0)units; sugars 150-199,(1)unit; sugars 200-249,(3)units; sugars 250-299,(5)units; sugars 300-349,(7)units; sugars more than 349,(9)units. Metformin (Metformin HCl) 1,000 Mg Tab 1,000 Mg PO BIDPC With meals Reported [Psych Meds ] Review of Systems Except as stated in HPI: all other systems reviewed are Neg Physical Exam Narrative GENERAL: Well-nourished, well-developed patient. SKIN: Focused skin assessment warm/dry. HEAD: Normocephalic. EYES: No scleral icterus. No injection or drainage. NECK: Supple, trachea midline. No JVD or lymphadenopathy. CARDIOVASCULAR: Regular rate and rhythm without murmurs, gallops, or rubs. RESPIRATORY: Breath sounds equal bilaterally. No accessory muscle use. GENITOURINARY: External genital area with symmetric small lesions consistent with patient attempts to remove tampon. Vaginal vault with minimal blood Cervical os was closed without drainage. No cervical motion tenderness. Tampon was located in the right superior aspect of the vaginal vault. Removed with sponge forceps. No obvious trauma to the vaginal cavity. MUSCULOSKELETAL: No cyanosis, or edema. BACK: Nontender without obvious deformity. No CVA tenderness. Data Data Last Documented VS Vital Signs Date Time Temp Pulse Resp B/P (MAP) Pulse Ox O2 Delivery O2 Flow Rate FiO2 08/12/17 09:34 08/12/17 08:26 98.6 95 16 98 Room Air Orders Orders Ed Urine Pregnancytest Poc (08/12/17 08:36) Ed Discharge Order (08/12/17 09:09) MDM Medical Decision Making Medical Screen Exam Complete: Yes Emergency Medical Condition: Yes Differential Diagnosis vaginal foreign body vs urethritis vs bacterial vaginosis Narrative Course 36-year-old female presents to the emergency department complaining of a tampon being stuck in her vagina for approximately 8-10 hours. Patient states that she had a tampon placed last night and as been unable to remove it since then. States that she has tried a couple of objects to include a spoon handle to remove the object. Patient denies pain, fever, chills, abdominal pain, urinary discomfort at this time. States that this is never happened before. She is currently on her menstrual cycle. Vital signs stable. Physical exam findings- complete tampon retrieved with string intact. Because of potential trauma to the vaginal cavity, Bacterial vaginosis prophylaxis given for outpatient use. Advised on use. There was no evidence of infection or subsequent issues regarding this foreign body. The tampon was in the vaginal cavity for less than 12 hours. Advised to follow up with her PCP within 2-3 days. Diagnosis Primary Impression: Foreign body in vagina Qualified Codes: T19.2XXA - Foreign body in vulva and vagina, initial encounter Referrals: Primary Care Physician Additional Instructions: Patient to follow up with primary care physician within 2-3 days. Use medication as prescribed. Avoid intercourse while on this medication. Scripts Metronidazole Vaginal Gel (Metronidazole Vaginal Gel) 0.75 % Gel 1 APPL VAGINAL HS for Infection for 5 Days, GM 0 Refills Prov: Harpreet Sanders MD 08/12/17 Disposition: 01 DISCHARGE HOME Condition: Stable Monique Padilla Aug 12, 2017 08:34
[2017-08-12] MEDS ORDERED: METR0.7512 VAGINAL (09:06)
== END 2017-08-12 09:36 | disposition home or self-care (01) ==
LOC: NEPD 08:24
DX: T19.2XXA Foreign body in vulva and vagina, initial encounter (principal)
CPT/HCPCS: 84703; 99283

== ENCOUNTER 2018-02-09 22:16 | Inpatient (IN) | payer OTHER ==
[~2018-02-09] VITALS: Ht 162.6 cm; Wt 69.1 kg
[~2018-02-09 22:16] MED LIST changes: +METR0.7512 VAGINAL
[2018-02-09 22:31] VITALS: BP 152/109; PULSE 120; RESP 18; TEMP 98.6
--- NOTE | 2018-02-09 23:31 | PD ---
HPI Chief Complaint: Psychiatric Symptoms Time Seen by Provider: 22:55 Travel History International Travel<30 days: No Contact w/Intl Traveler<30days: No Traveled to known affect area: No History of Present Illness HPI Patient is a 37-year-old female presenting to the emergency department under [place] act for psychiatric evaluation. Per the [place] act report patient was witnessed running into traffic. Her mother is concerned because she has been off of her medications. Patient has a history of schizoaffective disorder. Patient denies any suicidal homicidal ideations. Patient states she was not running into traffic. Patient is uncooperative with H&P. She has no physical complaints. She states she is not although on the [place] act statement mother reported that she was. PFSH Past Medical History Blood Disorders: Yes Anxiety: Yes Depression: Yes Cardiovascular Problems: Yes (HTN) Diabetes: Yes Gastrointestinal Disorders: Yes (GALLSTONES) Hypertension: Yes Kidney Stones: Yes Psychiatric: Yes Immunizations Current: Yes Schizophrenia: Yes Thyroid Disease: No ?: Unknown Menopausal: No : 5 Para: 4 Miscarriage: 1 : 0 Past Surgical History Section: Yes (One in 2004, 2013) Genitourinary Surgery: Yes (2004-Kidney stones) Gynecologic Surgery: Yes (c section with third AND 4TH ) Other Surgery: Yes (see H/ P) Social History Alcohol Use: Yes (OCC) Tobacco Use: Yes (1 PPD) Substance Use: Yes (MARIJUANA AND COCAINE) Allergies-Medications (Allergen,Severity, Reaction): Coded Allergies: fluoxetine (Verified Allergy, Severe, Swelling, 08/12/17) fluphenazine (Verified Allergy, Severe, SWELLING, 08/12/17) haloperidol (Verified Allergy, Severe, Swelling, 08/12/17) lurasidone (Verified Allergy, Severe, 08/12/17) "TONGUE SWELLS UP""GET DELUSIONAL" *MDRO Multi-Drug Resistant Organism (Verified Adverse Reaction, Unknown, 08/12/17) MRSA (groin-09/12/16) Reported Meds & Prescriptions Reported Meds & Active Scripts Active Metronidazole Vaginal Gel 0.75 % Gel 1 Appl VAGINAL HS 5 Days [place] (Hydrocodone-Acetaminophen) 5 Mg-325 Mg Tab 1 Tab PO Q4H PRN Augmentin (Amoxicillin-Clavulanate) 875-125 Mg Tab 1 Tab PO BID Accu-Chek Strips Janie Plus (Blood Glucose Test Strips) 1 Paola Paola 1 Strips .XX DIRECTED Humalog Inj (Insulin Human Lispro) 1,000 Unit/10 Ml Vial 1-9 Units SQ AC TID 30 Days Max dose at bedtime:( )units; sugars< 70,(0)units; sugars 150-199,(1)unit; sugars 200-249,(3)units; sugars 250-299,(5)units; sugars 300-349,(7)units; sugars more than 349,(9)units. Metformin (Metformin HCl) 1,000 Mg Tab 1,000 Mg PO BIDPC With meals Reported [Psych Meds ] Review of Systems Except as stated in HPI: all other systems reviewed are Neg Psychiatric: Positive: Disorder of Thought, Mood Disorder Physical Exam Narrative GENERAL: Well-developed, well-nourished, alert -[place] female. Presenting in no acute distress. SKIN: Warm and dry. HEAD: Atraumatic. Normocephalic. EYES: Pupils equal and round. No scleral icterus. No injection or drainage. ENT: No nasal bleeding or discharge. Mucous membranes pink and moist. NECK: Trachea midline. No JVD. CARDIOVASCULAR: Tachycardic RESPIRATORY: No accessory muscle use. Clear to auscultation. Breath sounds equal bilaterally. GASTROINTESTINAL: Abdomen soft, non-tender, nondistended. Hepatic and splenic margins not palpable. MUSCULOSKELETAL: Extremities without clubbing, cyanosis, or edema. No obvious deformities. NEUROLOGICAL: Awake and alert. No obvious cranial nerve deficits. Motor grossly within normal limits. Five out of 5 muscle strength in the arms and legs. Normal speech. PSYCHIATRIC: Defensive mood and affect; insight and judgment impaired. Data Data Last Documented VS Vital Signs Date Time Temp Pulse Resp B/P (MAP) Pulse Ox O2 Delivery O2 Flow Rate FiO2 02/10/18 00:26 112 18 136/86 (103) 100 Room Air 02/09/18 22:31 98.6 Orders Orders Complete Blood Count With Diff (02/09/18 22:55) Comprehensive Metabolic Panel (02/09/18 22:55) Thyroid Stimulating Hormone (02/09/18 22:55) Urinalysis - C+S If Indicated (02/09/18 22:55) Ed Urine Pregnancytest Poc (02/09/18 22:55) Psych Screen (02/09/18 22:55) Drug Screen, Random Urine (02/09/18 22:55) Alcohol (Ethanol) (02/09/18 22:55) Salicylates (Aspirin) (02/09/18 22:55) Tylenol (Acetaminophen) (02/09/18 22:55) Labs Laboratory Tests Test 02/09/18 23:00 Urine Color YELLOW Urine Turbidity HAZY Urine pH 5.5 Urine Specific [place] 1.025 Urine Protein 30 mg/dL Urine Glucose (UA) NEG mg/dL Urine Ketones 10 mg/dL Urine Occult Blood NEG Urine Nitrite NEG Urine Bilirubin NEG Urine Urobilinogen 2.0 MG/DL Urine Leukocyte Esterase LARGE Urine RBC 3 /hpf Urine WBC LESS THAN 1 /hpf Urine Squamous Epithelial Cells 19 /hpf Urine Bacteria RARE /hpf Urine Hyaline Casts 17 /lpf Urine Mucus FEW /lpf Microscopic Urinalysis Comment CULT NOT INDICATED Urine Opiates Screen NEG Urine Barbiturates Screen NEG Urine Amphetamines Screen NEG Urine Benzodiazepines Screen NEG Urine Cocaine Screen NEG Urine Cannabinoids Screen NEG MDM Medical Decision Making Medical Screen Exam Complete: Yes Emergency Medical Condition: Yes Medical Record Reviewed: Yes Interpretation(s) Laboratory Tests Test 02/09/18 23:00 Urine Color YELLOW Urine Turbidity HAZY Urine pH 5.5 Urine Specific [place] 1.025 Urine Protein 30 mg/dL Urine Glucose (UA) NEG mg/dL Urine Ketones 10 mg/dL Urine Occult Blood NEG Urine Nitrite NEG Urine Bilirubin NEG Urine Urobilinogen 2.0 MG/DL Urine Leukocyte Esterase LARGE Urine RBC 3 /hpf Urine WBC LESS THAN 1 /hpf Urine Squamous Epithelial Cells 19 /hpf Urine Bacteria RARE /hpf Urine Hyaline Casts 17 /lpf Urine Mucus FEW /lpf Microscopic Urinalysis Comment CULT NOT INDICATED Urine Opiates Screen NEG Urine Barbiturates Screen NEG Urine Amphetamines Screen NEG Urine Benzodiazepines Screen NEG Urine Cocaine Screen NEG Urine Cannabinoids Screen NEG Vital Signs Date Time Temp Pulse Resp B/P (MAP) Pulse Ox O2 Delivery O2 Flow Rate FiO2 02/09/18 22:31 98.6 120 18 152/109 (123) Differential Diagnosis Mood disorder versus substance abuse versus schizophrenia versus noncompliance versus metabolic abnormality versus other Narrative Course Patient is a 37-year-old female presenting to the emergency department under [place] act for psychiatric evaluation. Patient is defensive and uncooperative at times. Her heart rate is elevated, she is agitated on arrival. Will reassess. Mental health screening discussed with the patient. Psychiatric screen ordered. Patient refused labs. Urine drug screen is negative, [id number] is negative. Urinalysis unremarkable. Heart rate was elevated on arrival, it is trending down. Patient is medically cleared for psychiatric evaluation. Diagnosis Primary Impression: Medical clearance for psychiatric admission Condition: Stable Allegra Suarez February 09, 2018 23:31
[2018-02-09 23:38] LABS: BACTERIA, URINE RARE /hpf; BLOOD, URINE NEG (NEG); GLUCOSE,URINE NEG (NEG); HYALINE CAST, URINE 17 /lpf (RARE); KETONE, URINE 10 mg/dL (NEG); MUCUS URINE FEW /lpf (OCC); NITRITE,URINE NEG (NEG); PH, URINE 5.5 (5.0-8.5); SQUAMOUS EPITHELIAL CELL URINE 19 /hpf (0-5); URINE COLOR YELLOW (YELLW/STRAW); URINE LEUKOCYTE ESTERASE LARGE (NEG)
[2018-02-09 23:41] LABS: BILIRUBIN, URINE NEG (NEG)
[2018-02-10] VITALS (7 sets, daily range): BP systolic 118–153; BP diastolic 71–114; PULSE 78–112; RESP 18–20; TEMP 97.8–97.9; O2SAT 99–100
[2018-02-10] MEDS ORDERED: OLANZapine IM 10 MG VIAL IM ONE (04:45)
--- NOTE | 2018-02-10 08:55 | HHI.HP ---
Provisional Diagnosis Admission Date February 10, 2018 at 08:48 [place] I. 1. Schizoaffective disorder, bipolar type, acute exacerbation [place] II. Deferred Certification of Person's Competence To Provide Express and Informed Consent I have personally examined Cheryl Gaspar , a person being served at [facility] on, February 10, 2018 08:52. Express and informed consent means consent voluntarily given in writing, by a competent person, after sufficient explanation and disclosure of the subject matter involved to enable the person to make a knowing and willful decision without any element of force, fraud, deceit, duress, or other form of constraint or coercion. This person is 18 years of age or older, is not now known to be incompetent to consent to treatment with a guardian advocate, and does not have a health care surrogate or proxy currently making medical treatment decisions. I have found this person to be one of the following: [] Competent to provide express and informed consent, as defined above, for voluntary admission to this facility and is competent to provide express and informed consent for treatment. He/she has the consistent capacity to make well reasoned, willful, and knowing decisions concerning his or her medical or mental health treatment. The person fully and consistently understands the purpose of the admission for examination/placement and is fully capable of personally exercising all rights assured under [place] Incompetent to provide express and informed consent to voluntary admission, and this is incompetent to provide express and informed consent to treatment. The person must be transferred to involuntary status and a petition for a guardian advocate filed with the Circuit Court. [x] Refusing to provide express and informed consent to voluntary admission but is competent to provide express and informed consent for treatment. The person must be discharged or transferred to involuntary status. Form shall be completed within 24 hours of a person's arrival at the receiving facility and filed in the clinical record of each person: 1. Admitted on a voluntary basis 2. Permitted to provide express and informed consent to his/her own treatment 3. Allowed to transfer from involuntary to voluntary status 4. Prior to permitting a person to consent to his or her own treatment after having been previously found incompetent to consent to treatment. History of Present Illness Capacity: Has Capacity Psych Chief Complaint: Psychosis HPI Ms. Gaspar is a 37 year-old female with a history of schizoaffective disorder who presents under a [place] act by law enforcement alleging that the patient was running in traffic. Reviewing the electronic medical record, I note that I saw the patient in consultation in 2016. Patient seen and examined. Chart reviewed. Case discussed with nursing staff. On my examination today, the patient presents as somewhat petulant and uncooperative. She blandly denies the allegations in the [place] act but can provide no explanation for why her mother, who called law enforcement, would fabricate such as story. Nurse has endeavored to obtain collateral information from patient's mother without success. Patient denies any suicidal or homicidal ideation presently, but it is not at all clear that she is reliable to contract for safety. She was agitated overnight and required Zyprexa IM. She admits to some mood instability. Sleep and appetite are fair. I can elicit no paranoia, no ideas of reference, no thought insertion or withdrawal or other delusions. She denies AVH but appears somewhat internally preoccupied. Remainder of the psychiatric ROS is negative. No acute physical complaints. Past psychiatric history: Patient has previous diagnoses as noted above. She is not under the care of a psychiatrist and has been by her own admission nonadherent with psychotropic medications. She says that she has a history of psychiatric admissions in the past but cannot recall when she was last admitted. She denies a history of suicide attempts. Family history: Patient denies a family history of mental illness or suicide. Chemical dependency history: The patient denies any abuse of drugs or alcohol. Social history: The patient lives with her mother. She is single. She has 4 children. She is high school educated. She collects [employer]. She denies any history. Denies any legal history. Denies any access to guns or firearms. Denies any history of abuse or mistreatment. Review of Systems ROS Limitations: Psychotic, Poor Historian Except as stated in HPI: all other systems reviewed are Neg Past Family Social History Coded Allergies: fluoxetine (Verified Allergy, Severe, Swelling, 08/12/17) fluphenazine (Verified Allergy, Severe, SWELLING, 08/12/17) haloperidol (Verified Allergy, Severe, Swelling, 08/12/17) lurasidone (Verified Allergy, Severe, 08/12/17) "TONGUE SWELLS UP""GET DELUSIONAL" *MDRO Multi-Drug Resistant Organism (Verified Adverse Reaction, Unknown, 08/12/17) MRSA (groin-09/12/16) Past Medical History Chart indicates a history of diabetes mellitus. See EMR. Active Scripts Metronidazole Vaginal Gel (Metronidazole Vaginal Gel) 0.75 % Gel, 1 APPL VAGINAL HS for Infection for 5 Days, GM 0 Refills Prov:Harpreet Sanders MD 08/12/17 Hydrocodone-Acetaminophen ([place]) 5 Mg-325 Mg Tab, 1 TAB PO Q4H Y for PAIN, #12 TAB 0 Refills Prov:Agata Sierra MD 07/28/17 Amoxicillin-Clavulanate (Augmentin) 875-125 Mg Tab, 1 TAB PO BID for Infection, #10 TAB 0 Refills Prov:Agata Sierra MD 07/28/17 Accu-Chek Strips Janie Plus (Accu-Chek Strips Janie Plus) 1 Paola Paola, 1 STRIPS .XX DIRECTED for Blood Sugar Management, #90 BOX 0 Refills Prov:Ernestina Flanagan MD 10/01/16 Insulin Lispro (Human) Inj (Humalog Inj) 1,000 Unit/10 Ml Vial, 1-9 UNITS SQ ac tid for Blood Sugar Management for 30 Days, VIAL 0 Refills Max dose at bedtime:( )units; sugars< 70,(0)units; sugars 150-199,(1)unit; sugars 200-249,(3)units; sugars 250-299,(5)units; sugars 300-349,(7)units; sugars more than 349,(9)units. Prov:Ernestina Flanagan MD 10/01/16 Metformin (Metformin) 1,000 Mg Tab, 1000 MG PO BIDPC for Blood Sugar Management , #60 TAB 0 Refills With meals Prov:Ernestina Flanagan MD 10/01/16 Reported Medications [Psych Meds ] No Conflict Check 06/08/17 Patient reports that she takes no home medications. Patient's Strengths (min. 2) In a monitored setting. Verbally fluent. Physical Exam Physical examination was completed by the ED provider. On my examination today , the patient appears to be in no acute physical distress. No motor abnormalities noted. Labs and vitals reviewed: Vital Signs Vital Signs Date Time Temp Pulse Resp B/P (MAP) Pulse Ox O2 Delivery O2 Flow Rate FiO2 02/10/18 06:15 101 18 120/82 (95) 100 Room Air 02/09/18 22:31 98.6 Lab Results Test 02/09/18 23:00 Urine Color YELLOW Urine Turbidity HAZY Urine pH 5.5 Urine Specific [place] 1.025 Urine Protein 30 mg/dL Urine Glucose (UA) NEG mg/dL Urine Ketones 10 mg/dL Urine Occult Blood NEG Urine Nitrite NEG Urine Bilirubin NEG Urine Urobilinogen 2.0 MG/DL Urine Leukocyte Esterase LARGE Urine RBC 3 /hpf Urine WBC LESS THAN 1 /hpf Urine Squamous Epithelial Cells 19 /hpf Urine Bacteria RARE /hpf Urine Hyaline Casts 17 /lpf Urine Mucus FEW /lpf Microscopic Urinalysis Comment CULT NOT INDICATED Urine Opiates Screen NEG Urine Barbiturates Screen NEG Urine Amphetamines Screen NEG Urine Benzodiazepines Screen NEG Urine Cocaine Screen NEG Urine Cannabinoids Screen NEG Blood laboratories have not yet been obtained. I have placed an order for these laboratories to be obtained. ED point of care test negative. Mental Status Examination Appearance: Disheveled Consciousness: Alert Orientation: Person, Place (At least) Motor Activity: Normal gait Speech: Hesitant Language: Adequate Fund of Knowledge: Adequate Attention and Concentration: Easily Distracted Memory: Impaired (Suspect psychosis interferes) Mood: Other (Dysphoric) Affect: Blunt Thought Process & Associations: Other (Some poverty of thought) Thought Content: Thought blocking Hallucination Type: Other (Appears internally stimulated) Delusion Type: None Suicidal Ideation: No (Unreliable to contract for safety) Suicidal Plan: No Suicidal Intention: No Homicidal Ideation: No Homicidal Plan: No Homicidal Intention: No Insight: Poor Judgment: Poor Assessment & Plan Problem List: (1) Schizoaffective disorder ICD Codes: F25.9 - Schizoaffective disorder, unspecified Status: Acute Assessment & Plan 37-year-old female with psychiatric history as detailed above who presents under [place] act by law enforcement. On my examination today, the patient denies the allegations in the [place] act but can provide no alternative explanation for them. She denies suicidal or homicidal ideation, but I have concerns that she is not reliable to contract for safety in her present state. Decompensated psychosis in the setting of medication nonadherence is suspected. Given lack of reassuring collateral, I think it is the most prudent decision at this juncture to admit the patient to the inpatient psychiatric unit for safety, observation and stabilization. Admit inpatient. Patient is declining to consent for voluntary admission. Involuntary status. I have completed first opinion. Consult for second opinion. Patient retains capacity to consent for medications. For management of psychosis initiate Risperdal M tabs 1 mg twice daily with plans to titrate to effect. To consider long-acting injectable. Ativan as needed for anxiety. Cogentin as needed for EPS. Benadryl as needed for sleep. Accu-Cheks and sliding scale. Hospitalist consult for further management of diabetes. Check EKG for QTC. Vitals every shift. Counselor to see. Collateral information. Disposition planning. Estimated length of stay: 5-7 days. Discharge Planning Pending stabilization Request HC Surrog/Guard Advoc?: No Problem Qualifiers (1) Schizoaffective disorder: Qualified Codes: F25.0 - Schizoaffective disorder, bipolar type Shankar Moreno MD February 10, 2018 08:55
[2018-02-10] MEDS ORDERED: NICOTINE 21 MG/24 HR PATCH T-DERMAL PRN (09:00)
[2018-02-10] MEDS ORDERED: ALUMINUM/MAGNESIUM/SIMETH 30 ML CUP PO PRN (09:00)
[2018-02-10] MEDS ORDERED: GLUCAGON 1 MG/ML VIAL OTHER PRN (09:00)
[2018-02-10] MEDS ORDERED: MAGNESIUM HYDROXIDE SUSP 30 ML CUP PO PRN (09:00)
[2018-02-10] MEDS ORDERED: BENZTROPINE MESYLATE 2 MG/2 ML VIAL IM PRN (09:00)
[2018-02-10] MEDS ORDERED: DEXTROSE 50% IN WATER 50 ML VIAL(D50) IV PUSH PRN (09:00)
[2018-02-10] MEDS ORDERED: BENZTROPINE MESYLATE 1 MG TAB PO PRN (09:00)
[2018-02-10] MEDS: risperiDONE ODT 1 MG TAB PO SCH ×2 (09:45→21:00)
[2018-02-10] MEDS: INSULIN ASPART SUPPLEMENTAL SCALE SQ SCH ×3 (12:02→21:00)
[2018-02-10 12:13] LABS: AUTOMATED NEUTROPHIL # 3.4 TH/MM3 (1.8-7.7); BASOPHIL % 0.7 % (0.0-2.0); EOSINOPHIL # 0.1 TH/MM3 (0-0.4); EOSINOPHIL % 1.3 % (0.0-4.0); HEMOGLOBIN 14.7 GM/DL (11.6-15.3); LYMPH % 42.1 % (9.0-44.0); MEAN CELL VOLUME 82.5 FL (80.0-100.0); MEAN CORPUSCULAR HEMOGLOBIN 28.3 PG (27.0-34.0); MEAN CORPUSCULAR HGB CONC 34.3 % (32.0-36.0); MEAN PLATELET VOLUME 8.9 FL (7.0-11.0); MONO % 8.9 % (0.0-8.0); MONOCYTE # 0.6 TH/MM3 (0-0.9); PLATELET COUNT 207 TH/MM3 (150-450); RED BLOOD COUNT 5.21 MIL/MM3 (4.00-5.30); RED CELL DISTRIBUTION WIDTH 12.4 % (11.6-17.2); WHITE BLOOD COUNT 7.1 TH/MM3 (4.0-11.0)
--- NOTE | 2018-02-10 12:48 | PD.CONS ---
HPI Service [facility] Hospitalists Consult Requested By Primary Care Physician Unknown Diagnoses: History of Present Illness 37-year-old black female being admitted under [place] act for possible psychosis. Hospitalist consulted for medical management of diabetes. History obtained from patient emergency room records; to the hospital out of concern since she was running into traffic patient was brought in and her mother thought that she was not taking her medications. known history of schizoaffective disorder and diabetes type 1. Patient is able to affirms that the reason why she was brought in to the hospital was because her mom thought she was going "wild" and that her sugars and blood pressure are going "high." Patient says that she handles her medications all by herself including her insulin. Says that her blood sugars in the mornings usually run in the 150s-160s. Review of Systems Except as stated in HPI: all other systems reviewed are Neg Past Family Social History Allergies: Coded Allergies: fluoxetine (Verified Allergy, Severe, Swelling, 08/12/17) fluphenazine (Verified Allergy, Severe, SWELLING, 08/12/17) haloperidol (Verified Allergy, Severe, Swelling, 08/12/17) lurasidone (Verified Allergy, Severe, 08/12/17) "TONGUE SWELLS UP""GET DELUSIONAL" *MDRO Multi-Drug Resistant Organism (Verified Adverse Reaction, Unknown, 08/12/17) MRSA (groin-09/12/16) Past Medical History Diabetes History of MRSA Schizoaffective disorder Family History htn Social History Does smoke History of cocaine use Says that she is disabled Physical Exam Vital Signs Vital Signs Date Time Temp Pulse Resp B/P (MAP) Pulse Ox O2 Delivery O2 Flow Rate FiO2 02/10/18 11:00 111 20 153/114 (127) Room Air 02/10/18 06:15 101 18 120/82 (95) 100 Room Air 02/10/18 00:26 112 18 136/86 (103) 100 Room Air 02/09/18 22:31 98.6 120 18 152/109 (123) Physical Exam VS: afebrile GENERAL: Middle-aged black female SKIN: Warm and dry. EYES: Pupils equal and round. No scleral icterus. No injection or drainage. ENT: No nasal bleeding or discharge. Mucous membranes pink and moist. CARDIOVASCULAR: Regular rate and rhythm. no murmurs RESPIRATORY: No accessory muscle use. Clear to auscultation. Breath sounds equal bilaterally. GASTROINTESTINAL: Abdomen appears nondistended Extremities: No clubbing, cyanosis, or edema. No obvious deformities. MUSCULOSKELETAL: grossly intact ROM with 5/5 strength in upper and lower extremities proximally; adequate muscle bulk and tone for age and habitus NEUROLOGICAL: Awake and alert. No obvious cranial nerve deficits. No facial droop nor slurred speech noted. PSYCHIATRIC: Appropriate mood and affect; pleasantly cooperative Laboratory Laboratory Tests Test 02/09/18 23:00 02/10/18 11:42 Urine Color YELLOW Urine Turbidity HAZY Urine pH 5.5 Urine Specific [place] 1.025 Urine Protein 30 Urine Glucose (UA) NEG Urine Ketones 10 Urine Occult Blood NEG Urine Nitrite NEG Urine Bilirubin NEG Urine Urobilinogen 2.0 Urine Leukocyte Esterase LARGE Urine RBC 3 Urine WBC LESS THAN 1 Urine Squamous Epithelial Cells 19 Urine Bacteria RARE Urine Hyaline Casts 17 Urine Mucus FEW Microscopic Urinalysis Comment CULT NOT INDICATED Urine Opiates Screen NEG Urine Barbiturates Screen NEG Urine Amphetamines Screen NEG Urine Benzodiazepines Screen NEG Urine Cocaine Screen NEG Urine Cannabinoids Screen NEG White Blood Count 7.1 Red Blood Count 5.21 Hemoglobin 14.7 Hematocrit 43.0 Mean Corpuscular Volume 82.5 Mean Corpuscular Hemoglobin 28.3 Mean Corpuscular Hemoglobin Concent 34.3 Red Cell Distribution Width 12.4 Platelet Count 207 Mean Platelet Volume 8.9 Neutrophils (%) (Auto) 47.0 Lymphocytes (%) (Auto) 42.1 Monocytes (%) (Auto) 8.9 Eosinophils (%) (Auto) 1.3 Basophils (%) (Auto) 0.7 Neutrophils # (Auto) 3.4 Lymphocytes # (Auto) 3.0 Monocytes # (Auto) 0.6 Eosinophils # (Auto) 0.1 Basophils # (Auto) 0.0 CBC Comment DIFF FINAL Differential Comment Salicylates Level LESS THAN 1.7 Result Diagram: 02/10/18 1142 Assessment and Plan Assessment and Plan 37-year-old black female admitted for psychosis, hospitalist consulted for medical management of diabetes Psychosis -Psychiatry managing, will follow-up TSH -bloodwork so far unremarkable Diabetes -Home regimen is not clear, agree with proceeding with Accu-Cheks and low-dose sliding scale for now Cesar Moctezuma MD February 10, 2018 12:48
[2018-02-10 13:52] LABS: ALBUMIN 3.8 GM/DL (3.4-5.0); AST (GOT) 19 U/L (15-37); BLOOD UREA NITROGEN 9 MG/DL (7-18); CALCIUM 9.4 MG/DL (8.5-10.1); CHLORIDE 103 MEQ/L (98-107); CREATININE 0.71 MG/DL (0.50-1.00); GLOMERULAR FILTRATION RATE 113 ML/MIN (>89); GLUCOSE,RANDOM 92 MG/DL (74-106); SODIUM (NA) 139 MEQ/L (136-145)
[2018-02-10 14:01] LABS: ALKALINE PHOSPHATASE 81 U/L (45-117); ALT (GPT) 19 U/L (10-53); TOTAL BILIRUBIN ADULT 1.1 MG/DL (0.2-1.0); TOTAL PROTEIN 8.2 GM/DL (6.4-8.2)
[2018-02-10 14:02] LABS: ACETAMINOPHEN LESS THAN 2.0 MCG/ML (10.0-30.0)
[2018-02-10] MEDS: diphenhydrAMINE HCL 50 MG CAP PO PRN (23:39)
[2018-02-11] MEDS: LORazepam 2 MG/ML VIAL IM PRN (04:30)
[2018-02-11 06:27] VITALS: BP 123/73; PULSE 90; RESP 17; TEMP 97.3; O2SAT 97
[2018-02-11] MEDS: INSULIN ASPART SUPPLEMENTAL SCALE SQ SCH ×5 (08:00→21:00)
[2018-02-11] MEDS: risperiDONE ODT 1 MG TAB PO SCH ×2 (08:31→21:00)
[2018-02-11] MEDS: ACETAMINOPHEN 325 MG TAB PO PRN ×2 (08:35→17:24)
[2018-02-11] MEDS: REMOVE OLD PATCH T-DERMAL SCH (08:47)
[2018-02-11] MEDS: LORazepam 1 MG TAB PO PRN (11:26)
--- NOTE | 2018-02-11 14:15 | HHI.PR ---
Subjective Remarks Follow-up visit for HTN and DM. Spoke with nurse who reports patient psychotic, patient's mother called and is concerned patient might be and is requesting patient be tested for and tested for HIV and herpes. Patient is seen and examined in the day room in no acute distress. She is alert and oriented x3. Is asking when she can go home, states that her BP and DM are well controlled. She does report some nausea yesterday, but no vomiting, no nausea at the moment. She denies dysuria, constipation, diarrhea, fevers, chills , SOB, cough, headache, dizziness, or chest pain. She voices no other acute concerns at this moment. Objective Vitals Vital Signs Date Time Temp Pulse Resp B/P (MAP) Pulse Ox O2 Delivery O2 Flow Rate FiO2 02/11/18 06:27 97.3 90 17 123/73 (90) 97 02/10/18 17:46 97.8 88 18 118/77 (91) 99 02/10/18 17:45 97.9 78 18 118/71 (87) 99 02/10/18 16:00 110 18 140/81 (100) 100 02/10/18 15:45 02/10/18 15:35 101 18 130/84 (99) 100 Room Air Result Diagram: 02/10/18 1142 02/10/18 1142 Objective Remarks GENERAL: Middle-aged black female SKIN: Warm and dry. EYES: Pupils equal and round. No scleral icterus. No injection or drainage. ENT: Mucous membranes pink and moist. CARDIOVASCULAR: Regular rate and rhythm. no murmurs RESPIRATORY: Clear to auscultation. Breath sounds equal bilaterally. GASTROINTESTINAL: Abdomen appears nondistended Extremities: No clubbing, cyanosis, or edema. MUSCULOSKELETAL: Moves bilateral upper and lower extremities without difficulty , ambulating in the karimi. NEUROLOGICAL: Awake and alert. No obvious cranial nerve deficits. No facial droop nor slurred speech noted. PSYCHIATRIC: Calm and cooperative A/P Assessment and Plan 37-year-old black female admitted for psychosis, hospitalist consulted for medical management of diabetes Psychosis -Psychiatry managing - TSH WNL -blood work so far unremarkable Diabetes -Check hemoglobin A1C - Accu-Cheks and low-dose sliding -Patient refusing accu-checks, discussed importance of glycemic control ? -[id number] test documented as negative by ER provider on 02/09 -Labs stable, patient asymptomatic, can follow up with PCP or health department for HIV/herpes testing. DVT pro-ambulation Discussed with patient and nurse. Fer Peña February 11, 2018 14:15
[2018-02-11 17:56] VITALS: BP_SYST 135; BP_DIAS 61; BP_DIAS 91; PULSE 110; RESP 18; TEMP 98.3; O2SAT 99
--- NOTE | 2018-02-11 18:15 | PD.PSY.CON ---
Provisional Diagnosis Admission Date February 10, 2018 at 08:48 [place] I. 1. Schizoaffective disorder, bipolar type, acute exacerbation Huntington II. Deferred History of Present Illness Service Psychiatry Consult Requested By Dr. Moreno Reason for Consult Second opinion Primary Care Physician Unknown HPI Ms. Gaspar is a 37 year-old female with a history of schizoaffective disorder who presents under a [place] act by law enforcement alleging that the patient was running in traffic. Reviewing the electronic medical record, I note that I saw the patient in consultation in 2016. Patient seen and examined. Chart reviewed. Case discussed with nursing staff. On my examination today, the patient presents as somewhat petulant and uncooperative. She blandly denies the allegations in the [place] act but can provide no explanation for why her mother, who called law enforcement, would fabricate such as story. Nurse has endeavored to obtain collateral information from patient's mother without success. Patient denies any suicidal or homicidal ideation presently, but it is not at all clear that she is reliable to contract for safety. She was agitated overnight and required Zyprexa IM. She admits to some mood instability. Sleep and appetite are fair. I can elicit no paranoia, no ideas of reference, no thought insertion or withdrawal or other delusions. She denies AVH but appears somewhat internally preoccupied. Remainder of the psychiatric ROS is negative. No acute physical complaints. Past psychiatric history: Patient has previous diagnoses as noted above. She is not under the care of a psychiatrist and has been by her own admission nonadherent with psychotropic medications. She says that she has a history of psychiatric admissions in the past but cannot recall when she was last admitted. She denies a history of suicide attempts. Family history: Patient denies a family history of mental illness or suicide. Chemical dependency history: The patient denies any abuse of drugs or alcohol. Social history: The patient lives with her mother. She is single. She has 4 children. She is high school educated. She collects [employer]. She denies any history. Denies any legal history. Denies any access to guns or firearms. Denies any history of abuse or mistreatment. 02/11/18 - Second opinion Patient is a 37-year-old -[place] woman who carries a diagnosis of schizoaffective disorder, previous psychiatric admissions, denies any previous suicide attempts, was brought in under [place] act after allegedly running into traffic which patient was admitted to the inpatient psychiatry for further evaluation and management. Discussion nursing staff reported the patient has been refusing workup such as EKG, medications and Accu-Cheks while on the unit. Patient was found in blade on unit noted to be somewhat disorganized, internally preoccupied. Patient states that she is here in the hospital because of "a little anxiety". Patient states that she was brought here by police stating that she was in the park and someone had called police who had brought her here to the hospital. Patient states that she had been followed up by [facility] team last seen 1-2 months ago. Patient states her diagnoses schizophrenia and bipolar disorder and had been living with her aunt and mother. Patient's interview was limited to her current psychosis and unable to elaborate at this time. Patient was encouraged to comply with medications which she agreed to. Past Family Social History Coded Allergies: fluoxetine (Verified Allergy, Severe, Swelling, 08/12/17) fluphenazine (Verified Allergy, Severe, SWELLING, 08/12/17) haloperidol (Verified Allergy, Severe, Swelling, 08/12/17) lurasidone (Verified Allergy, Severe, 08/12/17) "TONGUE SWELLS UP""GET DELUSIONAL" *MDRO Multi-Drug Resistant Organism (Verified Adverse Reaction, Unknown, 08/12/17) MRSA (groin-09/12/16) Active Scripts Metronidazole Vaginal Gel (Metronidazole Vaginal Gel) 0.75 % Gel, 1 APPL VAGINAL HS for Infection for 5 Days, GM 0 Refills Prov:Harpreet Sanders MD 08/12/17 Hydrocodone-Acetaminophen ([place]) 5 Mg-325 Mg Tab, 1 TAB PO Q4H Y for PAIN, #12 TAB 0 Refills Prov:Agata Sierra MD 07/28/17 Amoxicillin-Clavulanate (Augmentin) 875-125 Mg Tab, 1 TAB PO BID for Infection, #10 TAB 0 Refills Prov:Agata Sierra MD 07/28/17 Accu-Chek Strips Janie Plus (Accu-Chek Strips Janie Plus) 1 Paola Paola, 1 STRIPS .XX DIRECTED for Blood Sugar Management, #90 BOX 0 Refills Prov:Ernestina Flanagan MD 10/01/16 Insulin Lispro (Human) Inj (Humalog Inj) 1,000 Unit/10 Ml Vial, 1-9 UNITS SQ ac tid for Blood Sugar Management for 30 Days, VIAL 0 Refills Max dose at bedtime:( )units; sugars< 70,(0)units; sugars 150-199,(1)unit; sugars 200-249,(3)units; sugars 250-299,(5)units; sugars 300-349,(7)units; sugars more than 349,(9)units. Prov:Ernestina Flanagan MD 10/01/16 Metformin (Metformin) 1,000 Mg Tab, 1000 MG PO BIDPC for Blood Sugar Management , #60 TAB 0 Refills With meals Prov:Ernestina Flanagan MD 10/01/16 Reported Medications [Psych Meds ] No Conflict Check 06/08/17 Current Medications Medications (Trade) Dose Ordered Sig/Tanner Route Start Time Stop Time Status Last Admin (risperDAL M-TAB) 1 mg Q12HR PO 02/10/18 09:00 02/11/18 08:31 (Ativan) 1 mg Q6H PRN PO 02/10/18 09:00 02/11/18 11:26 (Ativan Inj) 1 mg Q6H PRN IM 02/10/18 09:00 (Benadryl) 50 mg HS PRN PO 02/10/18 09:00 02/10/18 23:39 (Tylenol) 650 mg Q4H PRN PO 02/10/18 09:00 02/11/18 17:24 (Milk Of Magnesia Liq) 30 ml DAILY PRN PO 02/10/18 09:00 (Mag-Al Plus Susp Liq) 30 ml Q6H PRN PO 02/10/18 09:00 02/11/18 14:02 (Habitrol 21 Mg Patch.24 Hr) 1 patch DAILY PRN T-DERMAL 02/10/18 09:00 (Cogentin) 1 mg Q12H PRN PO 02/10/18 09:00 (Cogentin Inj) 1 mg Q12H PRN IM 02/10/18 09:00 Miscellaneous Information 1 DAILY T-DERMAL 02/11/18 09:00 (D50w (Vial) Inj) 50 ml UNSCH PRN IV PUSH 02/10/18 09:00 (Glucagon Inj) 1 mg UNSCH PRN OTHER 02/10/18 09:00 (NovoLOG SUPPLEMENTAL SCALE) 1 ACHS SLIDING SCALE SQ 02/10/18 12:00 02/11/18 17:00 Patient's Strengths (min. 2) In a monitored setting. Verbally fluent. Physical Exam Vital Signs Vital Signs Date Time Temp Pulse Resp B/P (MAP) Pulse Ox O2 Delivery O2 Flow Rate FiO2 02/11/18 17:56 98.3 110 18 135/91 (106) 99 02/10/18 15:35 Room Air Mental Status Examination Appearance: Disheveled Consciousness: Alert Orientation: Person, Place (At least) Motor Activity: Normal gait Speech: Hesitant Language: Adequate Fund of Knowledge: Adequate Attention and Concentration: Easily Distracted Memory: Impaired (Suspect psychosis interferes) Mood: Other (Dysphoric) Affect: Blunt Thought Process & Associations: Other (Some poverty of thought) Thought Content: Thought blocking Hallucination Type: Other (Appears internally stimulated) Delusion Type: None Suicidal Ideation: No (Unreliable to contract for safety) Suicidal Plan: No Suicidal Intention: No Homicidal Ideation: No Homicidal Plan: No Homicidal Intention: No Insight: Poor Judgment: Poor Assessment & Plan Problem List: (1) Schizoaffective disorder ICD Codes: F25.9 - Schizoaffective disorder, unspecified Status: Acute Assessment & Plan I have seen and examined this patient, reviewed the documentation, and I agree and concur with Dr. Moreno assessment and plan. Consult appreciated. Patient continues with disorganization, noted to be internally preoccupied, and refusing care at this time. Continue current treatment regimen. Continue monitor mood and behavior. Discharge planning in progress. Discharge Planning Patient return back to family residence when psychiatrically stable. Request HC Surrog/Guard Advoc?: No Problem Qualifiers (1) Schizoaffective disorder: Qualified Codes: F25.0 - Schizoaffective disorder, bipolar type Enmanuel Figueroa MD February 11, 2018 18:15
[2018-02-11] MEDS ORDERED: OLANZapine IM 10 MG VIAL IM ONE (20:30)
[2018-02-12 06:12] VITALS: BP 148/85; PULSE 86; RESP 16; TEMP 97.9; O2SAT 98
[2018-02-12] MEDS: INSULIN ASPART SUPPLEMENTAL SCALE SQ SCH ×4 (08:00→20:25)
[2018-02-12] MEDS: risperiDONE ODT 1 MG TAB PO SCH (08:17)
[2018-02-12] MEDS: metFORMIN HCL 500 MG TAB PO SCH ×2 (08:17→18:00)
[2018-02-12 08:45] LABS: CHOLESTEROL 153 MG/DL (120-200)
[2018-02-12 08:48] LABS: CHOLESTEROL/ HDL RATIO 3.23 RATIO; HDL CHOLESTEROL 47.3 MG/DL (40.0-60.0); LDL CHOLESTEROL 83 MG/DL (0-99); TRIGLYCERIDES 113 MG/DL (42-150)
[2018-02-12] MEDS: REMOVE OLD PATCH T-DERMAL SCH (08:55)
--- NOTE | 2018-02-12 11:04 | HHI.PYPN ---
Subjective Chief Complaint: Psychosis Remarks Patient seen and examined with nurse in coverage for Dr. Figueroa. Chart reviewed. Case discussed with nursing staff. Patient reportedly agitated overnight, pulled the keys from lanyard off of staff's neck. Patient had to be medicated with Zyprexa IM and was transferred to the higher acuity unit for closer monitoring. On my examination today, patient presents as paranoid and internally stimulated. She declines to leave the day area for the interview, and I suspect this is secondary to ongoing paranoia. She is oddly attired, wearing a bandanna with tissue paper stuffed into it. She is perseverative on discharge. Affect is irritable at times. Denies side effects from medications. No physical complaints. Review of Systems ROS Limitations: Psychotic, Poor Historian Except as stated in HPI: all other systems reviewed are Neg Mental Status Examination Appearance: Disheveled Consciousness: Alert Orientation: Person, Place (At least) Motor Activity: Other (No motor abnormalities noted) Speech: Unremarkable Language: Adequate Fund of Knowledge: Adequate Attention and Concentration: Easily Distracted Memory: Impaired (Suspect psychosis interferes) Mood: Irritable Affect: Irritable Thought Process & Associations: Other (Perseverative on discharge) Thought Content: Delusional Hallucination Type: Other (Internally preoccupied) Delusion Type: Paranoid Suicidal Ideation: No (Remains unreliable to contract for safety) Suicidal Plan: No Suicidal Intention: No Homicidal Ideation: No Homicidal Plan: No Homicidal Intention: No Insight: Poor Judgment: Poor Results Labs Test 02/12/18 08:00 Triglycerides Level 113 MG/DL Cholesterol Level 153 MG/DL LDL Cholesterol 83 MG/DL HDL Cholesterol 47.3 MG/DL Cholesterol/HDL Ratio 3.23 RATIO Labs reviewed. Lipid panel is within normal limits. Vitals/IOs Vital Signs Date Time Temp Pulse Resp B/P (MAP) Pulse Ox O2 Delivery O2 Flow Rate FiO2 02/12/18 06:12 97.9 86 16 148/85 (106) 98 02/10/18 15:35 Room Air Assessment & Plan Problem List: (1) Schizoaffective disorder ICD Codes: F25.9 - Schizoaffective disorder, unspecified Status: Acute Assessment & Plan Titrate Risperdal to 2 mg twice daily to target psychosis. Continue to monitor on the high acuity unit. Continue other medications and care as ordered. Justification for Cont. Inpt. Medication changes. Impairment in reality construction. Concern for impairment in safety. High risk for decompensation in less restrictive environment. Discharge Planning Pending psychiatric stabilization. Request HC Surrog/Guard Advoc?: No Problem Qualifiers (1) Schizoaffective disorder: Qualified Codes: F25.0 - Schizoaffective disorder, bipolar type Shankar Moreno MD February 12, 2018 11:04
--- NOTE | 2018-02-12 14:00 | HHI.PR ---
Subjective Remarks Follow-up visit for diabetes mellitus. Patient is seen and examined in the day room in no acute distress. She reports she is "getting ready to get out of here ". She denies any fevers, chills, nausea, vomiting, diarrhea, headaches, dizziness, shortness of breath, cough or chest pain. Spoke with nurse reports patient continues to be quite psychotic and refusing Accu-Cheks as well as vital signs at times. Objective Vitals Vital Signs Date Time Temp Pulse Resp B/P (MAP) Pulse Ox O2 Delivery O2 Flow Rate FiO2 02/12/18 06:12 97.9 86 16 148/85 (106) 98 02/11/18 17:56 98.3 110 18 135/91 (106) 99 Result Diagram: 02/10/18 1142 02/10/18 1142 Objective Remarks GENERAL: Middle-aged black female SKIN: Warm and dry. EYES: Pupils equal and round. No scleral icterus. ENT: Mucous membranes pink and moist. CARDIOVASCULAR: Regular rate and rhythm. no murmurs RESPIRATORY: Clear to auscultation. Breath sounds equal bilaterally. Extremities: No clubbing, cyanosis, or edema. MUSCULOSKELETAL: Moves bilateral upper and lower extremities without difficulty , ambulating in the karimi. NEUROLOGICAL: Awake and alert. No obvious cranial nerve deficits. No facial droop nor slurred speech noted. PSYCHIATRIC: Calm and cooperative A/P Assessment and Plan 37-year-old black female admitted for psychosis, hospitalist consulted for medical management of diabetes Psychosis -Psychiatry managing - TSH WNL -blood work so far unremarkable Diabetes -Hemoglobin A1c pending - Accu-Cheks and low-dose sliding -Patient refusing accu-checks, from time to time, discussed the importance of glycemic control. -Metformin 500 mg twice daily ? -[id number] test documented as negative by ER provider on 02/09 -Labs stable, patient asymptomatic, can follow up with PCP or health department for HIV/herpes testing. Elevated BP -Last 2 blood pressure recordings mildly elevated, discussed with nurse rechecking blood pressure when patient allows. DVT pro-ambulation Discussed with patient and nurse. We will wait for hemoglobin A1c to result in most likely sign off tomorrow. Fer Peña February 12, 2018 14:00
[2018-02-12] MEDS ORDERED: OLANZapine IM 10 MG VIAL IM ONE (14:46)
[2018-02-12 16:16] LABS: HEMOGLOBIN A1C 6.6 % (4.3-6.0)
[2018-02-12] MEDS: risperiDONE ODT 2 MG TAB PO SCH (20:26)
[2018-02-13] MEDS: LORazepam 2 MG/ML VIAL IM PRN (00:07)
[2018-02-13 06:12] VITALS: BP 141/90; PULSE 119; RESP 18; TEMP 97.9; O2SAT 99
[2018-02-13] MEDS: INSULIN ASPART SUPPLEMENTAL SCALE SQ SCH ×4 (08:00→19:42)
[2018-02-13] MEDS: REMOVE OLD PATCH T-DERMAL SCH (09:00)
[2018-02-13] MEDS: LORazepam 1 MG TAB PO PRN ×2 (09:32→17:38)
[2018-02-13] MEDS: metFORMIN HCL 500 MG TAB PO SCH ×2 (09:32→17:38)
[2018-02-13] MEDS: HYDROCHLOROTHIAZIDE 12.5 MG CAP PO SCH (09:33)
[2018-02-13] MEDS: risperiDONE ODT 2 MG TAB PO SCH (09:33)
--- NOTE | 2018-02-13 11:54 | HHI.PR ---
Subjective Remarks Follow-up visit for diabetes mellitus. Spoke with nurse reports patient continues to refuse Accu-Cheks from time to time and is still psychotic. Patient is observed in the day room having lunch with other patients and is going around taking other patient's foods without permission. She appears to be in no acute distress is eating. She denies any fevers, chills, nausea, vomiting, diarrhea shortness of breath, or cough. Discussed with patient the importance of blood pressure control as well as Accu-Cheks, she does not seem interested. She is asking when she will be able to go home. Objective Vitals Vital Signs Date Time Temp Pulse Resp B/P (MAP) Pulse Ox O2 Delivery O2 Flow Rate FiO2 02/13/18 06:12 97.9 119 18 141/90 (107) 99 Result Diagram: 02/10/18 1142 02/10/18 1142 Objective Remarks GENERAL: Middle-aged black female SKIN: Warm and dry. EYES: Pupils equal and round. No scleral icterus. ENT: Mucous membranes pink and moist. CARDIOVASCULAR: Regular rate and rhythm. No murmurs RESPIRATORY: Clear to auscultation. Breath sounds equal bilaterally. Extremities: No clubbing, cyanosis, or edema. MUSCULOSKELETAL: Moves bilateral upper and lower extremities without difficulty , ambulating in the karimi. NEUROLOGICAL: Awake and alert. No obvious cranial nerve deficits. No facial droop nor slurred speech noted. PSYCHIATRIC: Acting out. A/P Assessment and Plan 37-year-old black female admitted for psychosis, hospitalist consulted for medical management of diabetes Psychosis -Psychiatry managing - TSH WNL -blood work so far unremarkable Diabetes, well controlled -Hemoglobin A1c 6.6 - Accu-Cheks and low-dose sliding -Patient refusing accu-checks, from time to time, continue to reiterate the importance of glycemic control. -Metformin 500 mg twice daily ? -[id number] test documented as negative by ER provider on 02/09 -Labs stable, patient asymptomatic, can follow up with PCP or health department for HIV/herpes testing. Hypertension -We will start patient on low-dose hydrochlorothiazide -Discussed with patient the importance of BP control. -Monitor and adjust medications accordingly DVT pro-ambulation Discussed with patient and nurse. Fer Peña Feb 13, 2018 11:54
--- NOTE | 2018-02-13 13:45 | HHI.PYPN ---
Subjective Chief Complaint: Psychosis Remarks Patient seen for follow, chart reviewed. Discussion nursing staff reported the patient continued to be paranoid, disorganized at times with poor impulse control he redirection. Patient received Ativan 1 this morning due to increased anxiety. Patient also was noted to be taking other patient's food from the tray had to be redirected. Patient was found heavily on the unit noted B, cooperative. Patient refused to be interviewed in her room and preferred to be interviewed in the dayroom. Patient states that her sleep has been "up and down" reports her mood has been "good" denies any perceptual disturbances or delusions but noted to be somewhat paranoid and hypervigilant to what flex o writer operator was writing. Patient was encouraged to maintain boundaries with other patients which she acknowledged. Patient requested to be transferred to a lower acuity unit but was reminded that patient must maintain good behavioral control for such consideration which she states she would. Patient noted with less impulsiveness today but continues to have intrusiveness with others and needed redirection. Review of Systems Except as stated in HPI: all other systems reviewed are Neg Mental Status Examination Appearance: Disheveled Consciousness: Alert Orientation: Person, Place (At least) Motor Activity: Other (No motor abnormalities noted) Speech: Unremarkable Language: Adequate Fund of Knowledge: Adequate Attention and Concentration: Easily Distracted Memory: Impaired (Suspect psychosis interferes) Mood: Irritable Affect: Irritable Thought Process & Associations: Other (Perseverative on discharge) Thought Content: Thought blocking (Less so today), Delusional Hallucination Type: Other (Internally preoccupied, denies any hallucinations) Delusion Type: Paranoid Suicidal Ideation: No (Remains unreliable to contract for safety) Suicidal Plan: No Suicidal Intention: No Homicidal Ideation: No Homicidal Plan: No Homicidal Intention: No Insight: Poor Judgment: Poor Results Vitals/IOs Vital Signs Date Time Temp Pulse Resp B/P (MAP) Pulse Ox O2 Delivery O2 Flow Rate FiO2 02/13/18 06:12 97.9 119 18 141/90 (107) 99 02/10/18 15:35 Room Air Assessment & Plan Problem List: (1) Schizoaffective disorder ICD Codes: F25.9 - Schizoaffective disorder, unspecified Status: Acute Assessment & Plan Patient continues with labile mood with irritability at times needed redirection continues with intrusive behavior as well. Patient noted this to have slightly more organized thought process during interview able to maintain adequate responses to questioning today but continues to have some disorganized behavior on the unit and appearing internally preoccupied. We will increase risperidone to 2 mg a.m./3 mg at bedtime for psychosis, we will add clonazepam 0.5 mg every 12 hours for anxiety. Monitor mood and behavior. Treatment team will attempt to contact patient's mother Ms. Gaspar at [phone] for collateral formation as well as to involve her in patient's discharge planning. Justification for Cont. Inpt. At risk of further decompensation a lower level of care. Discharge Planning Return back to her residence when psychiatrically stable. Request HC Surrog/Guard Advoc?: No Problem Qualifiers (1) Schizoaffective disorder: Qualified Codes: F25.0 - Schizoaffective disorder, bipolar type Enmanuel Figueroa MD Feb 13, 2018 13:45
--- NOTE | 2018-02-13 18:23 | HHI.PYPN ---
Subjective Chief Complaint: Psychosis Remarks Patient seen for follow-up, chart reviewed. Mental Status Examination Appearance: Disheveled Consciousness: Alert Orientation: Person, Place (At least) Motor Activity: Other (No motor abnormalities noted) Speech: Unremarkable Language: Adequate Fund of Knowledge: Adequate Attention and Concentration: Easily Distracted Memory: Impaired (Suspect psychosis interferes) Mood: Irritable Affect: Irritable Thought Process & Associations: Other (Perseverative on discharge) Thought Content: Thought blocking (Less so today), Delusional Hallucination Type: Other (Internally preoccupied, denies any hallucinations) Delusion Type: Paranoid Suicidal Ideation: No (Remains unreliable to contract for safety) Suicidal Plan: No Suicidal Intention: No Homicidal Ideation: No Homicidal Plan: No Homicidal Intention: No Insight: Poor Judgment: Poor Results Vitals/IOs Vital Signs Date Time Temp Pulse Resp B/P (MAP) Pulse Ox O2 Delivery O2 Flow Rate FiO2 02/13/18 06:12 97.9 119 18 141/90 (107) 99 02/10/18 15:35 Room Air Assessment & Plan Problem List: (1) Schizoaffective disorder ICD Codes: F25.9 - Schizoaffective disorder, unspecified Status: Acute Assessment & Plan Estimated LOS: days Request HC Surrog/Guard Advoc?: No Problem Qualifiers (1) Schizoaffective disorder: Qualified Codes: F25.0 - Schizoaffective disorder, bipolar type Enmanuel Figueroa MD Feb 13, 2018 18:23
[2018-02-13 18:56] VITALS: BP 138/88; PULSE 109; RESP 18; TEMP 97.8; O2SAT 98
[2018-02-13] MEDS: clonazePAM 0.5 MG TAB PO SCH (20:46)
[2018-02-13] MEDS: risperiDONE 3 MG TAB PO SCH (20:46)
[2018-02-14] MEDS: diphenhydrAMINE HCL 50 MG CAP PO PRN (02:55)
[2018-02-14 06:21] VITALS: BP 137/84; PULSE 114; RESP 18; TEMP 98; O2SAT 99
[2018-02-14] MEDS: INSULIN ASPART SUPPLEMENTAL SCALE SQ SCH ×4 (07:09→20:14)
[2018-02-14] MEDS: clonazePAM 0.5 MG TAB PO SCH ×2 (07:59→20:15)
[2018-02-14] MEDS: risperiDONE ODT 2 MG TAB PO SCH (07:59)
[2018-02-14] MEDS: HYDROCHLOROTHIAZIDE 12.5 MG CAP PO SCH (07:59)
[2018-02-14] MEDS: metFORMIN HCL 500 MG TAB PO SCH ×2 (07:59→17:20)
[2018-02-14] MEDS: REMOVE OLD PATCH T-DERMAL SCH (08:01)
[2018-02-14] MEDS: LORazepam 1 MG TAB PO PRN (09:40)
[2018-02-14] MEDS ORDERED: OLANZapine IM 10 MG VIAL IM ONE ×2 (11:01→11:56)
[2018-02-14 11:42] VITALS: BP 137/93; PULSE 107; RESP 16; TEMP 98.4; O2SAT 99
[2018-02-14] MEDS ORDERED: LORazepam 2 MG/ML VIAL IM STA (11:55)
[2018-02-14] MEDS ORDERED: OLANZapine IM 10 MG VIAL IM STA (11:55)
[2018-02-14] MEDS ORDERED: diphenhydrAMINE HCL 50 MG/ML VIAL IM STA (11:55)
[2018-02-14] MEDS ORDERED: diphenhydrAMINE HCL 50 MG/ML VIAL ONE (11:56)
--- NOTE | 2018-02-14 12:07 | RADRPT ---
EXAM DATE: 02/14/2018 11:50 AM EDT AGE/SEX: 37 years / Female INDICATIONS: Patient states that she swallowed a battery today. CLINICAL DATA: This is the patient's initial encounter. Patient reports that signs and symptoms have been present for 1 day and indicates a pain score of 0/10. MEDICAL/SURGICAL HISTORY: Hypertension. Cardiovascular disease. Diabetes. IUD. None. COMPARISON: No prior [facility] exams available for comparison. FINDINGS: Examination of the abdomen demonstrates a normal bowel gas pattern. No free air is identified. IUD i dentified within the pelvis. No evidence of other radiopaque foreign object. No organomegaly is evid ent. Osseous structures are intact. CONCLUSION: No evidence of concerning radiopaque foreign body. Electronically signed by: Haritha Scott MD 02/14/2018 12:06 PM EDT
--- NOTE | 2018-02-14 12:08 | RADRPT ---
EXAM DATE: 02/14/2018 11:48 AM EDT AGE/SEX: 37 years / Female INDICATIONS: Patient states that she swallowed a battery today. CLINICAL DATA: This is the patient's initial encounter. Patient reports that signs and symptoms have been present for 1 day and indicates a pain score of 0/10. MEDICAL/SURGICAL HISTORY: Hypertension. Cardiovascular disease. Diabetes. IUD. None. COMPARISON: [facility] [place], CHEST SINGLE AP, 06/08/2017. . FINDINGS: A single AP view of the chest demonstrates the lungs to be symmetrically aerated without evidence of mass, infiltrate or effusion. The cardiomediastinal contours are unremarkable. Osseous structures a re intact. CONCLUSION: Negative examination. Electronically signed by: Haritha Scott MD 02/14/2018 12:06 PM EDT
--- NOTE | 2018-02-14 12:46 | HHI.PR ---
Subjective Remarks Follow-up visit for diabetes and hypertension. Spoke with nurse who reports patient continues to be quite psychotic, earlier today stooled a remote control and stated that she had swallowed batteries. Subsequently x-rays were done which were negative, patient later admitted to having/batteries down the toilet. She has also been refusing Accu-Cheks and rhythm received multiple ETO' s do to psychosis. Patient is seen ambulating in the karimi, does appear slightly sleepy almost. Disorganized thought process, requesting new clothing. Objective Vitals Vital Signs Date Time Temp Pulse Resp B/P (MAP) Pulse Ox O2 Delivery O2 Flow Rate FiO2 02/14/18 11:42 98.4 107 16 137/93 (108) 99 02/14/18 06:21 98.0 114 18 137/84 (101) 99 02/13/18 18:56 97.8 109 18 138/88 (105) 98 Result Diagram: 02/10/18 1142 02/10/18 1142 Imaging Last Impressions Chest X-Ray 02/14/18 0000 Signed Impressions: CONCLUSION: Negative examination. Abdomen X-Ray 02/14/18 0000 Signed Impressions: CONCLUSION: No evidence of concerning radiopaque foreign body. Objective Remarks GENERAL: Middle-aged black female SKIN: Warm and dry. EYES: Pupils equal and round. No scleral icterus. ENT: Mucous membranes pink and moist. CARDIOVASCULAR: Regular rate and rhythm. No murmurs RESPIRATORY: Clear to auscultation. Breath sounds equal bilaterally. Extremities: No clubbing, cyanosis, or edema. MUSCULOSKELETAL: Moves bilateral upper and lower extremities without difficulty , ambulating in the karimi. NEUROLOGICAL: Awake and alert, slightly sleepy. No obvious cranial nerve deficits. No facial droop. A/P Assessment and Plan 37-year-old black female admitted for psychosis, hospitalist consulted for medical management of diabetes Psychosis -Psychiatry managing, has received multiple ETO's today - TSH WNL -blood work so far unremarkable Diabetes, well controlled -Hemoglobin A1c 6.6 - Accu-Cheks and low-dose sliding -Patient refusing accu-checks -Metformin 500 mg twice daily Hypertension, fluctuates -started on hydrochlorothiazide 12.5mg daily -BP fluctuates, likely due to agitation, will continue on same dose. -Monitor and adjust medications accordingly DVT pro-ambulation Discussed with patient and nurse. Fer Peña Feb 14, 2018 12:45
--- NOTE | 2018-02-14 15:15 | HHI.PYPN ---
Subjective Chief Complaint: Psychosis Remarks Patient was seen and case discussed with nursing. Patient had an episode this morning where she claims she swallowed batteries. The on-call physician ordered x-rays which were negative. Patient is been very disorganized defecating on the floor and responding to internal stimuli. Before my visit she received an ETO Zyprexa and is lethargic. Thought processes disorganized and loose. Denies suicidal or homicidal ideation intent or plan. Though, speech is very low and difficult to understand Mental Status Examination Appearance: Disheveled Consciousness: Alert Orientation: Person, Place (At least) Motor Activity: Other (No motor abnormalities noted) Speech: Unremarkable Language: Adequate Fund of Knowledge: Adequate Attention and Concentration: Easily Distracted Memory: Impaired (Suspect psychosis interferes) Mood: Irritable Affect: Irritable Thought Process & Associations: Other (Perseverative on discharge) Thought Content: Thought blocking (Less so today), Delusional Hallucination Type: Other (Internally preoccupied, denies any hallucinations) Delusion Type: Paranoid Suicidal Ideation: No (Remains unreliable to contract for safety) Suicidal Plan: No Suicidal Intention: No Homicidal Ideation: No Homicidal Plan: No Homicidal Intention: No Insight: Poor Judgment: Poor Results Vitals/IOs Vital Signs Date Time Temp Pulse Resp B/P (MAP) Pulse Ox O2 Delivery O2 Flow Rate FiO2 02/14/18 11:42 98.4 107 16 137/93 (108) 99 02/10/18 15:35 Room Air Assessment & Plan Problem List: (1) Schizoaffective disorder ICD Codes: F25.9 - Schizoaffective disorder, unspecified Status: Acute Assessment & Plan We will order a one-to-one given erratic behavior and to prevent swallowing of any objects Justification for Cont. Inpt. Patient would decompensate in a less restrictive setting Request HC Surrog/Guard Advoc?: No Problem Qualifiers (1) Schizoaffective disorder: Qualified Codes: F25.0 - Schizoaffective disorder, bipolar type Sumeet Rodriguez DO Feb 14, 2018 15:15
[2018-02-14 17:30] VITALS: BP 136/76; PULSE 106; RESP 17; TEMP 98.8; O2SAT 98
[2018-02-14] MEDS: risperiDONE 3 MG TAB PO SCH (20:15)
[2018-02-15 06:14] VITALS: BP 150/97; PULSE 120; RESP 20; TEMP 97.9; O2SAT 98
[2018-02-15] MEDS: HYDROCHLOROTHIAZIDE 12.5 MG CAP PO SCH (07:42)
[2018-02-15] MEDS: clonazePAM 0.5 MG TAB PO SCH ×2 (07:42→20:06)
[2018-02-15] MEDS: metFORMIN HCL 500 MG TAB PO SCH ×2 (07:42→17:03)
[2018-02-15] MEDS: risperiDONE ODT 2 MG TAB PO SCH (07:42)
[2018-02-15] MEDS: INSULIN ASPART SUPPLEMENTAL SCALE SQ SCH ×4 (07:42→20:03)
[2018-02-15] MEDS: REMOVE OLD PATCH T-DERMAL SCH (07:43)
--- NOTE | 2018-02-15 10:20 | HHI.PYPN ---
Subjective Chief Complaint: Psychosis Remarks Patient was seen and case discussed with nursing. Patient continues on her 1- 1. She is quite agitated during the interview. She is confused and disorganized. She has not had any more swallowing behaviors. Insight is poor concerning admission. Responding to internal stimuli per nursing Mental Status Examination Appearance: Disheveled Consciousness: Alert Orientation: Person, Place (At least) Motor Activity: Other (No motor abnormalities noted) Speech: Unremarkable Language: Adequate Fund of Knowledge: Adequate Attention and Concentration: Easily Distracted Memory: Impaired (Suspect psychosis interferes) Mood: Irritable Affect: Irritable Thought Process & Associations: Other (Perseverative on discharge) Thought Content: Bizarre thinking, Thought blocking (Less so today), Delusional Hallucination Type: Other (Internally preoccupied, denies any hallucinations) Delusion Type: Paranoid Suicidal Ideation: No (Remains unreliable to contract for safety) Suicidal Plan: No Suicidal Intention: No Homicidal Ideation: No Homicidal Plan: No Homicidal Intention: No Insight: Poor Judgment: Poor Results Vitals/IOs Vital Signs Date Time Temp Pulse Resp B/P (MAP) Pulse Ox O2 Delivery O2 Flow Rate FiO2 02/15/18 06:14 97.9 120 20 150/97 (114) 98 Assessment & Plan Problem List: (1) Schizoaffective disorder ICD Codes: F25.9 - Schizoaffective disorder, unspecified Status: Acute Assessment & Plan Patient would decompensate in a less restrictive setting Continue current treatment plan Justification for Cont. Inpt. Patient would decompensate in a less restrictive setting Request HC Surrog/Guard Advoc?: No Problem Qualifiers (1) Schizoaffective disorder: Qualified Codes: F25.0 - Schizoaffective disorder, bipolar type Sumeet Rodriguez DO Feb 15, 2018 10:20
--- NOTE | 2018-02-15 11:50 | HHI.PR ---
Subjective Remarks Follow-up DM and HTN. Patient is seen in the day room having lunch this afternoon. She reports she is doing fine, no acute complaints. Refuses medical examination, continues to eat lunch. Nurse reports patient's behavior today is better than yesterday, no acute concerns. Objective Vitals Vital Signs Date Time Temp Pulse Resp B/P (MAP) Pulse Ox O2 Delivery O2 Flow Rate FiO2 02/15/18 06:14 97.9 120 20 150/97 (114) 98 02/14/18 17:30 98.8 106 17 136/76 (96) 98 Imaging Last Impressions Chest X-Ray 02/14/18 0000 Signed Impressions: CONCLUSION: Negative examination. Abdomen X-Ray 02/14/18 0000 Signed Impressions: CONCLUSION: No evidence of concerning radiopaque foreign body. Objective Remarks GENERAL: Middle-aged black female EYES: Pupils equal and round. No scleral icterus. ENT: Mucous membranes pink and moist. Extremities: No edema. MUSCULOSKELETAL: Moves bilateral upper and lower extremities without difficulty. NEUROLOGICAL: Awake and alert. No facial droop. A/P Assessment and Plan 37-year-old black female admitted for psychosis, hospitalist consulted for medical management of diabetes Psychosis -Psychiatry managing - TSH WNL -blood work so far unremarkable Diabetes, well controlled -Hemoglobin A1c 6.6 - Accu-Cheks and low-dose sliding, refusing on and off. - Continue Metformin 500 mg twice daily Hypertension, fluctuates -started on hydrochlorothiazide 12.5mg daily -BP fluctuates, likely due to agitation, as her HR will also increase. -Continue same dose of HCTZ for now DVT pro-ambulation Discussed with patient and nurse. [facility] will sign iff, if needed please reconsult. Thank you kindly. Fer Peña Feb 15, 2018 11:50
[2018-02-15] MEDS: LORazepam 1 MG TAB PO PRN ×2 (13:30→22:19)
[2018-02-15 16:00] VITALS: BP 124/74; PULSE 120; RESP 20; TEMP 97.9; O2SAT 98
[2018-02-15] MEDS: risperiDONE 3 MG TAB PO SCH (20:06)
[2018-02-15] MEDS: diphenhydrAMINE HCL 50 MG CAP PO PRN (21:45)
[2018-02-16] MEDS: IBUPROFEN 600 MG TAB PO PRN (05:58)
[2018-02-16 06:28] VITALS: BP 126/75; PULSE 100; RESP 17; TEMP 97.8; O2SAT 97
[2018-02-16] MEDS: INSULIN ASPART SUPPLEMENTAL SCALE SQ SCH ×4 (07:11→20:57)
[2018-02-16] MEDS: risperiDONE ODT 2 MG TAB PO SCH (08:29)
[2018-02-16] MEDS: HYDROCHLOROTHIAZIDE 12.5 MG CAP PO SCH (08:30)
[2018-02-16] MEDS: clonazePAM 0.5 MG TAB PO SCH ×2 (08:30→20:47)
[2018-02-16] MEDS: REMOVE OLD PATCH T-DERMAL SCH (08:30)
[2018-02-16] MEDS: metFORMIN HCL 500 MG TAB PO SCH ×3 (08:30→18:00)
[2018-02-16] MEDS: LORazepam 1 MG TAB PO PRN (09:12)
--- NOTE | 2018-02-16 10:01 | HHI.PYPN ---
Subjective Chief Complaint: Psychosis Remarks Patient seen and examined with nurse. Chart reviewed. Case discussed with nursing staff. Patient placed with 1-1 over the weekend because of disorganized behaviors including defecating on the floor, chewing on her bedding and claiming to have ingested batteries, although there was no radiographic evidence of this. On my examination today, the patient is paranoid and remains a little internally stimulated although she denies AVH. She denies SI or HI but seems unreliable to contract for safety. Somewhat medication seeking for benzodiazepine. No reported side effects from medications. No acute physical complaints. Review of Systems ROS Limitations: Psychotic, Poor Historian Except as stated in HPI: all other systems reviewed are Neg Mental Status Examination Appearance: Appropriate Consciousness: Alert Orientation: Person, Place (At least) Motor Activity: Other (No abnormal motor movements noted) Speech: Unremarkable Language: Adequate Fund of Knowledge: Adequate Attention and Concentration: Easily Distracted Memory: Impaired (Suspect psychosis interferes) Mood: Other ("Upset") Affect: Irritable Thought Process & Associations: Circumstantial Thought Content: Delusional Hallucination Type: Other (Internally stimulated) Delusion Type: Paranoid Suicidal Ideation: No (Remains unreliable to contract for safety) Suicidal Plan: No Suicidal Intention: No Homicidal Ideation: No Homicidal Plan: No Homicidal Intention: No Insight: Poor Judgment: Poor Results Labs Labs reviewed Last Impressions Chest X-Ray 02/14/18 0000 Signed Impressions: CONCLUSION: Negative examination. Abdomen X-Ray 02/14/18 0000 Signed Impressions: CONCLUSION: No evidence of concerning radiopaque foreign body. Vitals/IOs Vital Signs Date Time Temp Pulse Resp B/P (MAP) Pulse Ox O2 Delivery O2 Flow Rate FiO2 02/16/18 06:28 97.8 100 17 126/75 (92) 97 Assessment & Plan Problem List: (1) Schizoaffective disorder ICD Codes: F25.9 - Schizoaffective disorder, unspecified Status: Acute Assessment & Plan Titrate Risperdal to 3 mg twice daily to target psychosis. If this agent does not result in consistent improvement inpatient psychotic symptoms soon, to consider switching to a different agent. Continue one-to-one for safety, although we might consider discontinuing this tomorrow if the patient passes an uneventful evening. Continue to monitor on the high acuity unit. Continue other medications and care as ordered. Justification for Cont. Inpt. Med changes. Impairment in reality construction. Concern for impairment in safety. High risk for decompensation in less restrictive environment. Discharge Planning Pending psychiatric stabilization. Request HC Surrog/Guard Advoc?: No Problem Qualifiers (1) Schizoaffective disorder: Qualified Codes: F25.0 - Schizoaffective disorder, bipolar type Shankar Moreno MD Feb 16, 2018 10:01
[2018-02-16 16:53] VITALS: BP 128/85; PULSE 124; RESP 18; TEMP 98.1; O2SAT 97
[2018-02-16] MEDS: risperiDONE ODT 3 MG TAB PO SCH (21:00)
[2018-02-17] MEDS: IBUPROFEN 600 MG TAB PO PRN ×2 (04:01→21:29)
[2018-02-17] MEDS: INSULIN ASPART SUPPLEMENTAL SCALE SQ SCH ×4 (07:42→20:11)
[2018-02-17] MEDS: metFORMIN HCL 500 MG TAB PO SCH ×2 (08:52→17:03)
[2018-02-17] MEDS: clonazePAM 0.5 MG TAB PO SCH (08:52)
[2018-02-17] MEDS: risperiDONE ODT 3 MG TAB PO SCH (08:52)
[2018-02-17] MEDS: REMOVE OLD PATCH T-DERMAL SCH (08:53)
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
[2018-02-17] MEDS: HYDROCHLOROTHIAZIDE 12.5 MG CAP PO SCH (09:30)
[2018-02-17] MEDS: LORazepam 1 MG TAB PO PRN ×2 (14:52→21:33)
[2018-02-17] MEDS: diphenhydrAMINE HCL 50 MG CAP PO PRN (20:11)
[2018-02-18] MEDS: INSULIN ASPART SUPPLEMENTAL SCALE SQ SCH ×5 (06:32→20:48)
--- NOTE | 2018-02-18 08:41 | HHI.PYPN ---
Subjective Chief Complaint: Psychosis Remarks Patient seen and examined with nurse. Chart reviewed. Case discussed with nursing staff. Patient reportedly slept somewhat better overnight with Benadryl. Case discussed with counselor. Patient remains on 1:1 related to behaviors over weekend. On my exam today, patient remains paranoid and internally stimulated. She insists that she is going to be released today. I try to educate her regarding the [place] [address], but she just keeps repeating that we are going to release her. She remains suspicious about medications but says that she will take the first dose of Abilify today because she is confident she will be discharged today. Patient remains somewhat disheveled. No physical complaints. Review of Systems ROS Limitations: Psychotic, Poor Historian Except as stated in HPI: all other systems reviewed are Neg Mental Status Examination Appearance: Disheveled Consciousness: Alert Orientation: Person, Place, Date/Time (approximate) Motor Activity: Normal gait, Other (No abnormal motor movements noted) Speech: Unremarkable Language: Adequate Fund of Knowledge: Adequate Attention and Concentration: Easily Distracted Memory: Impaired (Suspect psychosis interferes) Mood: Other (Dysphoric) Affect: Other (Restricted) Thought Process & Associations: Circumstantial Thought Content: Delusional Hallucination Type: Other (Internally preoccupied) Delusion Type: Paranoid Suicidal Ideation: No (Unreliable to contract for safety) Homicidal Ideation: No Insight: Poor Judgment: Poor Results Labs Item Value Date Time Rapid Plasma Reagin NON-REACTIVE 02/17/182138 HIV (1&2) Ab and P24 Ag, 4th Gener NONREACTIVE 02/17/182138 Labs reviewed. Head CT read as negative for acute process. Vitals/IOs Vital Signs Date Time Temp Pulse Resp B/P (MAP) Pulse Ox O2 Delivery O2 Flow Rate FiO2 02/18/18 10:20 97.8 109 18 140/81 (100) 98 Assessment & Plan Problem List: (1) Schizoaffective disorder ICD Codes: F25.9 - Schizoaffective disorder, unspecified Status: Acute Assessment & Plan First dose of Abilify 15 mg today. We will plan for daily dose titrations of this agent as tolerated to target psychotic symptoms. Although Maintena not available through our pharmacy, we could consider discharge directly to [facility] where she could be started on this agent if efficacious. Nursing tells me patient has continued to insist that we are discharging her today, and explosive behavior is anticipated when she finally realizes that she will be staying; I will leave the 1:[address] for now. Continue to monitor on the high acuity unit. Continue other medications and care as ordered. Justification for Cont. Inpt. Impairment in reality construction. Medication changes planned. High risk for decompensation in less restrictive environment. Discharge Planning Pending psychiatric stabilization. [place] [address] tomorrow. Request HC Surrog/Guard Advoc?: Yes Problem Qualifiers (1) Schizoaffective disorder: Qualified Codes: F25.0 - Schizoaffective disorder, bipolar type Shankar Moreno MD Feb 18, 2018 08:41
[2018-02-18] MEDS: REMOVE OLD PATCH T-DERMAL SCH (09:00)
[2018-02-18] MEDS: HYDROCHLOROTHIAZIDE 12.5 MG CAP PO SCH (09:13)
[2018-02-18] MEDS: LORazepam 1 MG TAB PO PRN ×2 (09:13→15:41)
[2018-02-18] MEDS: metFORMIN HCL 500 MG TAB PO SCH ×2 (09:13→18:22)
[2018-02-18] MEDS: ARIPiprazole 15 MG TAB PO SCH (09:13)
[2018-02-18] MEDS: IBUPROFEN 600 MG TAB PO PRN (10:11)
[2018-02-18 10:20] VITALS: BP 140/81; PULSE 109; RESP 18; TEMP 97.8; O2SAT 98
--- NOTE | 2018-02-18 10:59 | RADRPT ---
EXAM DATE: 02/18/2018 10:38 AM EDT AGE/SEX: 37 years / Female INDICATIONS: Altered mental status. CLINICAL DATA: This is the patient's initial encounter. Patient reports that signs and symptoms have been present for 1 day and indicates a pain score of 0/10. MEDICAL/SURGICAL HISTORY: Hypertension. Diabetes mellitus type II. Seizures, schizophrenia. None. RADIATION DOSE: 56.35 CTDI (mGy) COMPARISON: [facility] – [place], [place] BRAIN W/O CONTRAST, 07/28/2017. . TECHNIQUE: CT of the head without contrast. Using automated exposure control and adjustment of the mA and/or kV according to patient size, radiation dose was kept as low as reasonably achievable to ob tain optimal diagnostic quality images. FINDINGS: Cerebrum: The ventricles are normal for age. No evidence of midline shift, mass lesion, hemorrhage or acute infarction. No extraaxial fluid collections are seen. Posterior Fossa: The cerebellum and brainstem are intact. The 4th ventricle is midline. The cerebe llopontine angle is unremarkable. Extracranial: The visualized portion of the orbits is intact. Skull: The calvaria is intact. No evidence of skull fracture. CONCLUSION: 1. Negative CT Head non contrast. Electronically signed by: Akshat Patel MD 02/18/2018 10:57 AM EDT
[2018-02-18] MEDS ORDERED: OLANZapine IM 10 MG VIAL IM STA (12:00)
[2018-02-18 15:15] VITALS: BP 113/83; PULSE 98; RESP 18; TEMP 97.9; O2SAT 100
[2018-02-19] MEDS: IBUPROFEN 600 MG TAB PO PRN (03:59)
[2018-02-19] MEDS: INSULIN ASPART SUPPLEMENTAL SCALE SQ SCH ×2 (06:08→12:00)
[2018-02-19] MEDS: HYDROCHLOROTHIAZIDE 12.5 MG CAP PO SCH (08:15)
[2018-02-19] MEDS: ARIPiprazole 15 MG TAB PO SCH (08:15)
[2018-02-19] MEDS: metFORMIN HCL 500 MG TAB PO SCH (08:15)
[2018-02-19] MEDS: LORazepam 1 MG TAB PO PRN (08:15)
--- NOTE | 2018-02-19 08:53 | HHI.PYPN ---
Subjective Chief Complaint: Psychosis Mental Status Examination Appearance: Disheveled Consciousness: Alert Orientation: Person, Place, Date/Time (approximate) Motor Activity: Normal gait, Other (No abnormal motor movements noted) Speech: Unremarkable Language: Adequate Fund of Knowledge: Adequate Attention and Concentration: Easily Distracted Memory: Impaired (Suspect psychosis interferes) Mood: Other (Dysphoric) Affect: Other (Restricted) Thought Process & Associations: Circumstantial Thought Content: Delusional Hallucination Type: Other (Internally preoccupied) Delusion Type: Paranoid Suicidal Ideation: No (Unreliable to contract for safety) Homicidal Ideation: No Insight: Poor Judgment: Poor Results Vitals/IOs Vital Signs Date Time Temp Pulse Resp B/P (MAP) Pulse Ox O2 Delivery O2 Flow Rate FiO2 02/18/18 15:15 97.9 98 18 113/83 (93) 100 Assessment & Plan Problem List: (1) Schizoaffective disorder ICD Codes: F25.9 - Schizoaffective disorder, unspecified Status: Acute Assessment & Plan Estimated LOS: days Request HC Surrog/Guard Advoc?: Yes Problem Qualifiers (1) Schizoaffective disorder: Qualified Codes: F25.0 - Schizoaffective disorder, bipolar type Shankar Moreno MD Feb 19, 2018 08:53
[2018-02-19] MEDS: REMOVE OLD PATCH T-DERMAL SCH (09:00)
[2018-02-19] MEDS ORDERED: ARIP1TAB13 PO (11:12)
[2018-02-19] MEDS ORDERED: METF500 PO (11:12)
[2018-02-19] MEDS ORDERED: HYDR12.57 PO (11:12)
--- NOTE | 2018-02-19 11:13 | HHI.DS ---
Psychiatry Discharge Summary Inpatient Psychiatric care?: Yes Advance Directive: No Reason Not Provided: patient declined Mental Health AdvanceDirective: No Health Care Proxy: No Admission Admission Date February 10, 2018 at 08:48 Admission Diagnosis: (1) Schizoaffective disorder ICD Code: F25.9 - Schizoaffective disorder, unspecified Brief History Ms. Gaspar is a 37 year-old female with a history of schizoaffective disorder who presents under a [place] act by law enforcement alleging that the patient was running in traffic. Reviewing the electronic medical record, I note that I saw the patient in consultation in 2016. Patient seen and examined. Chart reviewed. Case discussed with nursing staff. On my examination today, the patient presents as somewhat petulant and uncooperative. She blandly denies the allegations in the [place] act but can provide no explanation for why her mother, who called law enforcement, would fabricate such as story. Nurse has endeavored to obtain collateral information from patient's mother without success. Patient denies any suicidal or homicidal ideation presently, but it is not at all clear that she is reliable to contract for safety. She was agitated overnight and required Zyprexa IM. She admits to some mood instability. Sleep and appetite are fair. I can elicit no paranoia, no ideas of reference, no thought insertion or withdrawal or other delusions. She denies AVH but appears somewhat internally preoccupied. Remainder of the psychiatric ROS is negative. No acute physical complaints. Past psychiatric history: Patient has previous diagnoses as noted above. She is not under the care of a psychiatrist and has been by her own admission nonadherent with psychotropic medications. She says that she has a history of psychiatric admissions in the past but cannot recall when she was last admitted. She denies a history of suicide attempts. Family history: Patient denies a family history of mental illness or suicide. Chemical dependency history: The patient denies any abuse of drugs or alcohol. Social history: The patient lives with her mother. She is single. She has 4 children. She is high school educated. She collects [employer]. She denies any history. Denies any legal history. Denies any access to guns or firearms. Denies any history of abuse or mistreatment. Tobacco Use In Past 30 Days: No Tobacco Past 30 Days Alcohol Use: Never Hospital Course Patient was admitted to a locked, inpatient psychiatric unit. A general medical consultation was obtained. Appropriate precautions were in place throughout patient's hospital stay. Patient was seen and examined on the unit by psychiatry and visited by counselor. Psychotropic medications were adjusted. Patient responded poorly to Risperdal and an Abilify trial was underway when the patient was discharged by the [employer] [place]. Patient's behavior was fairly disturbed initially and patient required one-to-one supervision. Behavior did improve somewhat with pharmacologic treatment. Patient's case was presented to the [employer] court, and the instrument/control technician has ordered the patient's release from the inpatient psychiatric unit today. On my examination today, the patient denies SI or HI. She denies AVH but still appears internally stimulated. She remains fairly guarded and suspicious and ongoing paranoia is suspected. She denies any side effects from medications. Patient is insisting on discharge from the hospital today, and I have no choice at this point but to discharge her. She leaves very much AGAINST MEDICAL ADVICE as I do not believe that she is psychiatrically stable. Psychiatric follow-up as arranged by counselor. Patient is also to follow up with primary care. Patient to return to psychiatric emergency room for any concerning psychiatric symptoms as part of a general safety plan. Results Blood Pressure 113 / 83 Vital Signs Date Time Temp Pulse Resp B/P (MAP) Pulse Ox O2 Delivery O2 Flow Rate FiO2 02/18/18 15:15 97.9 98 18 113/83 (93) 100 Laboratory Tests Test 02/17/18 21:39 Laboratory Results Test 02/12/18 08:00 Cholesterol Level 153 MG/DL (120-200) HDL Cholesterol 47.3 MG/DL (40.0-60.0) Hemoglobin A1c 6.6 % (4.3-6.0) LDL Cholesterol 83 MG/DL (0-99) Triglycerides Level 113 MG/DL (42-150) Summary of Procedures None done Imaging Last Impressions Head CT 02/18/18 0000 Signed Impressions: CONCLUSION: 1. Negative CT Head non contrast. Chest X-Ray 02/14/18 0000 Signed Impressions: CONCLUSION: Negative examination. Abdomen X-Ray 02/14/18 0000 Signed Impressions: CONCLUSION: No evidence of concerning radiopaque foreign body. Pending results at discharge: No Medications # of Antipsychotic meds at D/C: 1 Approp Antipsych med options 1 - Minimum of three failed multiple trials of monotherapy. 2 - Documented plan to taper to monotherapy due to previous use of multiple meds OR cross-taper in progress at D/C. 3 - Documentation of augmentation of Clozapine. 4 - Justification other than those listed in allowable values 1-3, document here : Discharge Discharge Date: Feb 19, 2018 Discharge Diagnosis: (1) Schizoaffective disorder ICD Code: F25.9 - Schizoaffective disorder, unspecified Status: Acute Pt Condition on Discharge: Guarded (Because AMA discharge) Discharge Disposition: Discharge Home Discharge Instructions Diet Instructions: As Tolerated, No Restrictions Activities you can perform: Weight Bearing as Colleen Scheduled Appointment: As per counselors notes Discharge Time > 30 minutes Mental Status Examination Appearance: Appropriate Consciousness: Alert Orientation: Person, Place, Date/Time (approximate) Motor Activity: Normal gait, Other (No motoric abnormalities noted) Speech: Unremarkable Language: Adequate Fund of Knowledge: Adequate Attention and Concentration: Easily Distracted Memory: Impaired (Continue to suspect psychosis interferes) Mood: Other (Dysphoric) Affect: Irritable, Other (Remains restricted) Thought Process & Associations: Circumstantial Thought Content: Other (As below) Hallucination Type: Other (Remains internally stimulated) Delusion Type: Other (Suspicious, guarded) Suicidal Ideation: No Suicidal Plan: No Suicidal Intention: No Homicidal Ideation: No Homicidal Plan: No Homicidal Intention: No Insight: Poor Judgment: Poor Discharge/Advance Care Plan Health Problems: (1) Schizoaffective disorder Goals to promote your health * To prevent worsening of your condition and complications * To maintain your health at the optimal level Directions to meet your goals Take your medications as prescribed Follow your dietary instruction Follow activity as directed Keep your appointments as scheduled Take your immunizations and boosters as scheduled If your symptoms worsen call your PCP, if no PCP go to Urgent Care Center or Emergency Room For 24 questions related to your inpatient stay or results of tests pending at discharge, please contact Dr. Shankar Moreno at Smoking is Dangerous to Your Health. Avoid second hand smoking Problem Qualifiers (1) Schizoaffective disorder: Qualified Codes: F25.0 - Schizoaffective disorder, bipolar type Shankar Moreno MD Feb 19, 2018 11:13
== END 2018-02-19 12:30 | disposition left against medical advice (07) | DRG 885 ==
LOC: NEPJ 22:16 → NEDA 02-10 08:48 → H260 02-10 15:49 → H270 02-11 20:17
PROVIDERS: ADMIT Psychiatry & Neurology Psychiatry; ATTEND Psychiatry & Neurology Psychiatry
DX: F25.0 Schizoaffective disorder, bipolar type (principal); E10.8 Type 1 diabetes mellitus with unspecified complications; Z91.14 Patient's other noncompliance with medication regimen; I10 Essential (primary) hypertension; F41.9 Anxiety disorder, unspecified; Z53.20 Procedure and treatment not carried out because of patient's decision for unspecified reasons; Z86.14 Personal history of Methicillin resistant Staphylococcus aureus infection; Z87.442 Personal history of urinary calculi; F17.210 Nicotine dependence, cigarettes, uncomplicated; Z88.8 Allergy status to other drugs, medicaments and biological substances; Z79.4 Long term (current) use of insulin
CPT/HCPCS: 70450; 71045; 74018; 80053; 80061; 80307; 81001; 82948; 83036; 84443; 84703; 85025; 86592; 87389; 96372; G0475; J1200; J1815; J2060; Q0163

== ENCOUNTER 2018-03-17 22:53 | Inpatient (IN) ==
--- NOTE | 2018-03-18 01:00 | ED ---
HPI General Chief complaint: Psychiatric Symptoms Stated complaint: psych eval/dbpd Time Seen by Provider: 03/17/18 23:20 Source: RN notes reviewed and police History of Present Illness HPI narrative: 37-year-old female with history of schizophrenia presents emergency department under [place] act for psychiatric evaluation. Patient apparently has not been taking her medications. Patient was threatening to burn down the apartment complex where she resides. She continued to threaten to want to hurt people on her way into the emergency department with police. Patient was aggressive and uncooperative upon arrival. She was medicated for this. At this time she is resting quietly. Her vital signs are stable. She offers no history in regards to the events of today. Related Data Allergies Allergy/AdvReac Type Severity Reaction Status Date / Time fluoxetine Allergy Severe Swelling Verified 08/12/17 08:36 fluphenazine Allergy Severe SWELLING Verified 08/12/17 08:36 haloperidol Allergy Severe Swelling Verified 08/12/17 08:36 lurasidone Allergy Severe Verified 08/12/17 08:36 *MDRO Multi-Drug Resistant AdvReac Unknown Uncoded 08/12/17 08:36 Organism Review of Systems Except as stated in HPI: all other systems reviewed are negative PMFSH Social History Social History Substance History: No History of Abuse Second Hand Smoke Exposure: No Smoking Status: Never smoker How Often Do You Have a Drink Containing Alcohol: 2 to 4 times a month Recent Travel in [facility] within the Last 8 Weeks: No Recent Out of Country Travel within the Last 8 Weeks: No Substance Abuse Detail Marijuana: Substance Use Status: Active Immunization History Tetanus Immunization: Unable to Assess Hx Influenza Vaccine This Season: Unable to Assess Exam Narrative Exam Narrative: GENERAL: Well-nourished female patient, resting quietly with her eyes closed appears without distress SKIN: Focused skin assessment warm/dry. HEAD: Atraumatic. Normocephalic. EYES: Pupils equal and round. No scleral icterus. No injection or drainage. ENT: No nasal bleeding or discharge. Mucous membranes pink and moist. NECK: Trachea midline. No JVD. CARDIOVASCULAR: Regular rate RESPIRATORY: No accessory muscle use. GASTROINTESTINAL: Abdomen soft, non-tender, nondistended. MUSCULOSKELETAL: No obvious deformities. No clubbing. No cyanosis. No edema. NEUROLOGICAL: Arousable. No obvious cranial nerve deficits. Motor grossly within normal limits. Normal speech. Medical Decision Making TIFFANIE Attestation TIFFANIE supervised visit: No MDM Narrative Medical decision making narrative: 37-year-old female presents emergency department under [place] act for psychiatric evaluation. Patient was initially aggressive and uncooperative. She urinated on the floor in her room. She is medicated with Zyprexa, Benadryl, Ativan. Upon reassessment she is resting quietly in the bed. She is refusing all lab work at this time. She appears without distress. She is medically cleared to undergo psychiatric screening for further evaluation and disposition. Medical Records Medical records reviewed: Yes I reviewed the patient's medical records. Discharge Plan Discharge Disposition Patient Disposition: 30 Still Patient Discharge Condition Condition: Stable Discharge Details Discharge Problem: Acute psychosis Physicians Team ED Provider: [facility] Ed,[facility] [place] Midlevel Provider: Teressa Duff Primary Care Provider: UNKNOWN, Status ED Status: Medically Cleared
[2018-03-18 09:00] LABS: Amphetamine Screen,Urine Neg (Neg); Barbiturate Screen,Urine Neg (Neg); Cannabinoid Screen,Urine Neg (Neg); Cocaine Screen,Urine Pos (Neg); Opiate Screen,Urine Neg (Neg)
[2018-03-18] MEDS ORDERED: Aluminum/Magnesium/Simethacone Susp 30 ML UDC PO PRN (10:26)
[2018-03-18] MEDS ORDERED: Bisacodyl 10 MG Supp RECTAL PRN (10:26)
--- NOTE | 2018-03-18 10:47 | P.HPPSY ---
Provisional Diagnosis Admission Date: March 17, 2018 22:53 [place] I.: Schizoaffective disorder, bipolar type, cocaine use disorder [place] II.: Visible cluster B traits [place] III.: Lumbar pain [place] IV.: Noncompliance with psychotropic [place] V.: 40 Competence Certification of Person's Competence To Provide Express and Informed Consent I have personally examined Cheryl Gaspar, a person being served at [facility] on, March 18, 2018 1031. Express and informed consent means consent voluntarily given in writing, by a competent person, after sufficient explanation and disclosure of the subject matter involved to enable the person to make a knowing and willful decision without any element of force, fraud, deceit, duress, or other form of constraint or coercion. This person is 18 years of age or older, is not now known to be incompetent to consent to treatment with a guardian advocate, and does not have a health care surrogate or proxy currently making medical treatment decisions. I have found this person to be one of the following: [] Competent to provide express and informed consent, as defined above, for voluntary admission to this facility and is competent to provide express and informed consent for treatment. He/she has the consistent capacity to make well reasoned, willful, and knowing decisions concerning his or her medical or mental health treatment. The person fully and consistently understands the purpose of the admission for examination/placement and is fully capable of personally exercising all rights assured [place] [] Incompetent to provide express and informed consent to voluntary admission, and this is incompetent to provide express and informed consent to treatment. The person must be transferred to involuntary status and a petition for a guardian advocate filed with the Circuit Court. [x] Refusing to provide express and informed consent to voluntary admission but is competent to provide express and informed consent for treatment. The person must be discharged or transferred to involuntary status. Form shall be completed within 24 hours of a person's arrival at the receiving facility and filed in the clinical record of each person: 1. Admitted on a voluntary basis 2. Permitted to provide express and informed consent to his/her own treatment 3. Allowed to transfer from involuntary to voluntary status 4. Prior to permitting a person to consent to his or her own treatment after having been previously found incompetent to consent to treatment. History of Present Illness Capacity: Has capacity History of Present Illness: The patient is 37-year-old -[place] woman, domiciled along in [facility], single, mother of 4 kids in the foster care system, unemployed, supported by [facility] , with psychiatric history of schizophrenia versus schizoaffective disorder, cocaine use disorder, previous psychiatric hospitalizations, previous suicide attempts, the last hospitalization was here at [facility] in January 2018 under the care of Dr. Moreno, documentation review, the patient was discharged by court from the hospitalization, the patient is not in psychotropics at the moment, medical history of lumbar pain,who presents emergency department under [place] act for psychiatric evaluation. Patient apparently has not been taking her medications. Patient was threatening to burn down the apartment complex where she resides. She continued to threaten to want to hurt people on her way into the emergency department with police. Patient was aggressive and uncooperative upon arrival. She was medicated for this with Zyprexa 10 mg IM. EMR reviewed. The case was discussed with the ER staff. On the psychiatric evaluation I find a patient that is poorly cooperative, very irritable, requesting to be discharged. She says that she has to leave "because those people are going to find me whatever I am". Patient says that "if they continue getting him away I am going to really burn the building". The patient says that she prefers not to talk about it. She seems quite suspicious, internally preoccupied. She denies symptomatology of depression, denies anxiety , she denies suicidal and homicidal at the moment, she denies visual and auditory hallucinations. I asked her to give me blood and urine in order to help me to make a final decision about her disposition, but when she was about to have her blood drawn she verbalized to the nurse "are you telling to those people what I am doing?". The patient is oriented 3. After she was medicated , she remained calm, no behavioral dysregulation or aggressive behavior reported in the last 12 hours. No collateral information available. - Inpatient Certification I certify that the inpatient services were ordered in accordance with Medicare regulations governing the order. This includes certification that hospital inpatient services are reasonable and necessary and in the case of services not specified as inpatient-only under 42 CFR 419.22(n), that they are appropriately provided as inpatient services in accordance to with the 2-midnight benchmark under 43 CFR 412.3(e) I certify that inpatient psychiatric hospital services are medically necessary. Evaluation and treatment and/or diagnostic testing are expected to improve the patient's condition. The patient needs on a daily basis, active treatment furnished directly by or requiring the supervision of inpatient psychiatric facility personnel. Estimated Total Length of Stay (Days): 7 Plans for Post Hospital Care: Home Review of Systems Constitutional: Denies anorexia, Denies body ache(s), Denies chills, Denies daytime sleepiness, Denies excessive sweating, Denies fatigue, Denies fever(s), Denies headache(s), Denies increased appetite, Denies lack of energy, Denies malaise, Denies night sweats, Denies weakness, Denies weight gain, Denies weight loss, Denies other Cardiovascular: Denies bluish discoloration of hand/feet, Denies chest pain, Denies chest pain at rest, Denies chest pain with activity, Denies excessive sweating, Denies fainting, Denies fast heart rate, Denies foot swelling, Denies generalized swelling, Denies irregular heart rhythm, Denies leg pain with activity, Denies leg sores, Denies leg swelling, Denies lightheadedness, Denies radiating jaw, neck or arm pain, Denies rapid, pounding, or irregular heartbeat , Denies shortness of breath, Denies shortness of breath with activity, Denies shortness of breath when lying down, Denies shortness of breath causing sudden awakening, Denies slow heart rate, Denies other Respiratory: Denies change in phlegm color, Denies chest congestion, Denies cough, Denies coughing up blood, Denies excessive phlegm production, Denies pain on inspiration, Denies pain with cough, Denies shortness of breath, Denies shortness of breath with activity, Denies snoring, Denies stridor, Denies wheezing, Denies other Gastrointestinal: Denies abdominal pain, Denies belching, Denies black, tarry stools, Denies bloating, Denies bright, red blood in stools, Denies change in bowel habits, Denies constant urge to pass stool, Denies change in stools, Denies coffee ground vomit, Denies constipation, Denies cramping, Denies difficulty swallowing, Denies excessive passing of gas, Denies feeling full early, Denies heartburn, Denies incontinent of stools, Denies loose stools, Denies nausea, Denies pain with swallowing, Denies vomiting, Denies vomiting blood, Denies other Musculoskeletal: Denies abnormal walking, Denies back pain, Denies body aches, Denies decreased muscle mass, Denies deformity, Denies joint pain, Denies joint swelling, Denies limited joint movement, Denies loss of height, Denies muscle cramps, Denies muscle weakness, Denies neck pain, Denies numbness, Denies radiating pain into limb, Denies stiffness, Denies tingling, Denies other Neurologic: Denies abnormal hearing, Denies abnormal movements, Denies abnormal speech, Denies abnormal walking, Denies behavioral changes, Denies burning sensations, Denies confusion, Denies dizziness, Denies fainting, Denies frequent falls, Denies headache(s), Denies lack of coordination, Denies localized weakness, Denies loss of vision, Denies memory loss, Denies numbness, Denies other visual disturbances, Denies radiating pain, Denies restless legs, Denies convulsions, Denies seizure-like activity, Denies sensory deficit, Denies tingling, Denies tingling/numbness/burning sensations, Denies tremor(s), Denies unsteadiness, Denies weakness, Denies other Psychiatric: Reports behavioral changes, Reports paranoia PMFSH - History History Provided By: Patient, Law Enforcement - Medical History Medical History: Medical History (Last Updated 03/18/18 @ 10:39 by Lj Boothe MD) Back pain - Tobacco History Second Hand Smoke Exposure: No Smoking Status: Never smoker - Alcohol History How Often Do You Have a Drink Containing Alcohol: 2 to 4 times a month - Substance Use History Substance History: Active Abuse - Substance Use Type Marijuana Status: Active Comment: Per pt, she drinks alcohol at times. Admits that she had a few beers last night. Crack/Cocaine Status: Active Route Used: Inhalation Reason for Use: Get High - Travel History Recent Travel in the [place] Within the Last 8 Weeks: No Recent Travel Out of the Country Within the Last 8 Weeks: No - Immunization History Tetanus Immunization: Unable to Assess Hx Influenza Vaccine This Season: Unable to Assess Quality Measures - Patient Strengths Patient's strengths (minimum of 2): Verbal communication Medications and Allergies Active Medications: Active Medications Al Hydrox/Mg Hydrox/Simethicone (Mag-Al Plus Susp Liq) 30 ml PO Q6H PRN PRN Reason: DYSPEPSIA Al Hydroxide/Mg Hydroxide (Milk Of Magnesia Liq) 30 ml PO DAILY PRN PRN Reason: CONSTIPATION Al Hydroxide/Mg Hydroxide (Milk Of Magnesia Liq) 30 ml PO Q12H PRN PRN Reason: Mild Constipation Aripiprazole (Abilify) 5 mg PO DAILY NAWAF Bisacodyl (Dulcolax Supp) 10 mg RECTAL DAILY PRN PRN Reason: SEVERE CONSITIPATION Lactulose (Lactulose Liq) 30 ml PO DAILY PRN PRN Reason: SEVERE CONSITIPATION Senna/Docusate Sodium (Neetu-Colace) 1 tab PO BID NAWAF Sennosides (Senokot) 17.2 mg PO Q12H PRN PRN Reason: Moderate Constipation Allergies Allergy/AdvReac Type Severity Reaction Status Date / Time fluoxetine Allergy Severe Swelling Verified 08/12/17 08:36 fluphenazine Allergy Severe SWELLING Verified 08/12/17 08:36 haloperidol Allergy Severe Swelling Verified 08/12/17 08:36 lurasidone Allergy Severe Verified 08/12/17 08:36 *MDRO Multi-Drug Resistant AdvReac Unknown Uncoded 08/12/17 08:36 Organism Home Medications Medication Instructions Recorded Confirmed Type Unable to Obtain Home Meds 03/18/18 03/18/18 History Results - Labs Labs: Laboratory Results - last 24 hr 03/18/18 03/18/18 08:09 08:19 POC Glucose 76 Urine Opiates Screen Neg Ur Barbiturates Screen Neg Ur Amphetamines Screen Neg U Benzodiazepines Scrn Neg Urine Cocaine Screen Pos U Cannabinoids Screen Neg Exam Vital signs: Vital Signs 03/18/18 08:13 03/18/18 10:28 Temperature 97.5 F L Pulse Rate 89 88 Respiratory Rate 18 20 Blood Pressure 131/87 141/82 H Pulse Oximetry 100 Intake & Output 03/17/18 03/18/18 03/18/18 18:59 06:59 18:59 Weight 35.38 kg Narrative: No tremors, no EPS, no psychomotor retardation or agitation, no gait disturbance Mental Status Examination Appearance: Disheveled Consciousness: Alert Orientation: x4 Speech: Unremarkable Language: Adequate Fund of Knowledge: Adequate Memory: Unremarkable Mood: Oppositional Affect: Irritable, Blunt Thought Process & Associations: Goal directed Thought Content: Bizarre thinking Hallucination Type: None Delusion Type: Paranoid Suicidal Ideation: No Suicidal Plan: No Suicidal Intention: No Homicidal Ideation: No Homicidal Plan: No Homicidal Intention: No Insight: Poor Judgment: Poor Assessment and Plan - Assessment (1) Schizoaffective disorder Code(s): F25.9 - Schizoaffective disorder, unspecified Status: Acute - Plan Plan: Estimated LOS: [] days Psychiatric evaluation today the patient presents irritable, oppositional, initially was aggressive and agitated to the point that had to be medicated with olanzapine 10 mg IM. She was brought by the police to the hospital because she has making statements to burn her building and also saying that she wants to kill people. On my psychiatric evaluation the patient is guarded, irritable, she seems to be quite suspicious, stating that if her neighbors continue bothering her she is really cannot burn her building. During the assessment the patient states that "those people" are plotting against her and they could be here controlling the staff to harm her. Given her history of schizophrenia, poor compliance with medications, history of aggressive behavior , the patient represents danger to self and others, she will be admitted in psychiatry for hospitalization. I have recommended to the patient to restart his psychotropics, she is present agreement. We will start Abilify 5 mg daily. Patient will be transferred to 2700 unit. Consult psychiatry for second opinion. Justification for Continued Inpatient Stay: The patient is acutely psychotic (1) Schizoaffective disorder Qualifiers: Schizoaffective disorder type: bipolar Qualified Code(s): F25.0 - Schizoaffective disorder, bipolar type
[2018-03-18 11:46] LABS: Baso % (Auto) 0.5 % (0.0-2.0); Eos # (Auto) 0.1 th/mm3 (0.0-0.4); Eos % (Auto) 0.9 % (0.0-4.0); Hemoglobin 14.7 gm/dL (11.6-15.3); Lymph # (Auto) 1.9 th/mm3 (1.0-4.8); Lymph % (Auto) 27.6 % (9.0-44.0); Mean Corpuscular HGB Conc 33.4 % (32.0-36.0); Mean Corpuscular Hemoglobin 28.2 pg (27.0-34.0); Mean Corpuscular Volume 84.3 fL (80.0-100.0); Mono # (Auto) 0.6 th/mm3 (0.0-0.9); Mono % (Auto) 8.9 % (0.0-8.0); Neut # (Auto) 4.4 th/mm3 (1.8-7.7); Neut % (Auto) 62.1 % (16.0-70.0); Platelet Count 137 th/mm3 (150-450); Red Blood Count 5.23 mil/mm3 (4.00-5.30); Red Cell Distribution Width 14.4 % (11.6-17.2)
[2018-03-18 12:05] LABS: Anion Gap 12 meq/L (5-15); Blood Urea Nitrogen 12 mg/dL (7-18); Calcium 8.8 mg/dL (8.5-10.1); Carbon Dioxide 25.3 meq/L (21.0-32.0); Chloride 105 meq/L (98-107); Glomerular Filtration Rate Greater Than 89 mL/min (>89); Glucose,Random 104 mg/dL (74-106); Potassium 3.4 meq/L (3.5-5.1); Sodium 142 meq/L (136-145)
[2018-03-18 12:06] LABS: Alcohol 4 mg/dL (0-5)
[2018-03-18 12:14] LABS: Thyroid Stimulating Hormone 0.898 uIU/mL (0.358-3.740)
[2018-03-18] MEDS: ARIPiprazole 5 MG Tablet PO SCH (12:28)
[2018-03-18] MEDS: Senna/Docusate Sodium 8.6/50 MG Tablet PO SCH (20:44)
[2018-03-19] MEDS: ARIPiprazole 5 MG Tablet PO SCH (08:05)
[2018-03-19] MEDS: Senna/Docusate Sodium 8.6/50 MG Tablet PO SCH (08:06)
[2018-03-19 11:12] LABS: Anion Gap 10 meq/L (5-15); Blood Urea Nitrogen 10 mg/dL (7-18); Calcium 9.6 mg/dL (8.5-10.1); Carbon Dioxide 24.6 meq/L (21.0-32.0); Chloride 104 meq/L (98-107); Glomerular Filtration Rate Greater Than 89 mL/min (>89); Glucose,Random 100 mg/dL (74-106); Potassium 3.9 meq/L (3.5-5.1); Sodium 139 meq/L (136-145)
[2018-03-19 11:13] LABS: Cholesterol 141 mg/dL (120-200)
[2018-03-19 11:21] LABS: Chol/HDL Ratio 3.23 Ratio; HDL Cholesterol 43.6 mg/dL (40.0-60.0); LDL Cholesterol,Calculated 81 mg/dL (0-99); Triglycerides 84 mg/dL (42-150)
[2018-03-19] MEDS ORDERED: Aluminum/Magnesium/Simethacone Susp 30 ML UDC PO PRN (15:35)
[2018-03-19] MEDS ORDERED: Bisacodyl 10 MG Supp RECTAL PRN (15:35)
--- NOTE | 2018-03-19 15:54 | P.PNPSY ---
Subjective Remarks: Patient initially admitted by Dr. Muller's H&P reviewed and agreed with. I reviewed the initial psychiatric template orders finish them. I have also initiated petition supporting involuntary psychiatric hospitalization thus I will do first opinion request second opinion. I also feel patient has no capacity thus I will ask for health care surrogate and guardian advocate. Patient is received to as needed medication so far today because of aggressive hostile behaviors. Patient seen by me with nurse Rabia patient continues angry hostile invading my personal space showing no insight into her disease becoming quite circular and her questions with no processing of the answers. This also involved to the state where she needed another ETO. Since she do not have a healthcare surrogate or a guardian advocate we will need to treat the behaviors as they occur with as needed or ETO medications Review of Systems All other systems reviewed negative except as stated in HPI Mental Status Examination Appearance: Disheveled Consciousness: Alert Orientation: x4 Motor Activity: Normal gait Speech: Pressured, Rapid Language: Adequate Fund of Knowledge: Adequate Memory: Unremarkable Mood: Angry, Oppositional, Irritable Affect: Irritable, Other (Decreased range and intensity) Thought Process & Associations: Loose associations, Circumstantial, Linear Thought Content: Bizarre thinking Hallucination Type: None Delusion Type: Paranoid Suicidal Ideation: No Suicidal Plan: No Suicidal Intention: No Homicidal Ideation: No Homicidal Plan: No Homicidal Intention: No Insight: Poor Judgment: Poor Assessment and Plan - Assessment (1) Schizoaffective disorder Code(s): F25.9 - Schizoaffective disorder, unspecified Status: Acute - Plan Plan: Patient remains quite psychotic delusional with paranoid and aggressive with no insight into her disease. The stomach feel patient does not have capacity thus I will ask for second opinion petition supporting [place] and health care surrogate and guardian advocate Justification for Continued Inpatient Stay: At this time patient would decompensate a place to the lower level of care Discharge Planning: To be determined Request Healthcare Surrogate/Guardian Advocate?: Yes (1) Schizoaffective disorder Qualifiers: Schizoaffective disorder type: bipolar Qualified Code(s): F25.0 - Schizoaffective disorder, bipolar type
[2018-03-19 16:19] LABS: Hemoglobin A1c 6.1 % (4.3-6.0)
[2018-03-20] MEDS ORDERED: Chlorpromazine Inj 50 MG/2 ML Ampule IM STA (13:51)
--- NOTE | 2018-03-20 13:58 | P.PNPSY ---
Subjective Remarks: Patient seen and karimi with nurse Dina, patient chart reviewed, patient needed DTO's 3 yesterday with little effect. Today patient is screaming and yelling and swearing intrusive intimidating, slamming her hand on the on the glass at the nurse's station demanding medicine and shots. Patient does have significant allergies. Upon review of medication I feel patient would tolerate Thorazine. We will offer her at this time because she was so out of control Thorazine 50 mg IM Benadryl 50 mg IM and Ativan 1 mg IM Review of Systems All other systems reviewed negative except as stated in HPI Mental Status Examination Appearance: Disheveled Consciousness: Alert Orientation: x4 Motor Activity: Normal gait Speech: Pressured, Rapid Language: Adequate Fund of Knowledge: Adequate Memory: Unremarkable Mood: Angry, Oppositional, Irritable, Manic Affect: Irritable, Labile, Other (Decreased range and intensity) Thought Process & Associations: Loose associations, Circumstantial, Linear Thought Content: Bizarre thinking Hallucination Type: None Delusion Type: Paranoid Suicidal Ideation: No Suicidal Plan: No Suicidal Intention: No Homicidal Ideation: No Homicidal Plan: No Homicidal Intention: No Insight: Poor Judgment: Poor Assessment and Plan - Assessment (1) Schizoaffective disorder Code(s): F25.9 - Schizoaffective disorder, unspecified Status: Acute - Plan Plan: Patient continues to pound and the on the windows of the nurses station I have concern that patient will harm herself or harm others therefore we are calling a close patient to be given to the medications listed above and to be placed in restraints at this time until she can gain control of her behavior Justification for Continued Inpatient Stay: At this time patient would decompensate a place to the lower level of care Discharge Planning: To be determined Request Healthcare Surrogate/Guardian Advocate?: Yes (1) Schizoaffective disorder Qualifiers: Schizoaffective disorder type: bipolar Qualified Code(s): F25.0 - Schizoaffective disorder, bipolar type
[2018-03-20] MEDS: Senna/Docusate Sodium 8.6/50 MG Tablet PO SCH (14:33)
[2018-03-20] MEDS: ARIPiprazole 5 MG Tablet PO SCH (14:35)
[2018-03-21] MEDS: Acetaminophen 325 MG Tablet PO PRN (08:25)
[2018-03-21] MEDS: Senna/Docusate Sodium 8.6/50 MG Tablet PO SCH (09:36)
[2018-03-21] MEDS ORDERED: OLANZapine 10 MG Tablet PO ONE (11:10)
--- NOTE | 2018-03-21 13:05 | P.PNPSY ---
Subjective Remarks: Pt seen and discussed with staff. She remains psychotic and delusional. She has been agitated and aggressive. She received olanzapine 10mg IM x1 this morning for agitation and aggression towards peers. Consent for medications from [facility] still pending. She yells and expresses hostile paranoid ideations towards staff and received risperdal mtab 1mg PO X1 for safety. Mental Status Examination Appearance: Disheveled Consciousness: Alert Orientation: x4 Motor Activity: Normal gait Speech: Pressured, Rapid Language: Adequate Fund of Knowledge: Adequate Memory: Unremarkable Mood: Angry, Oppositional, Irritable, Manic Affect: Irritable, Labile Thought Process & Associations: Loose associations, Circumstantial, Linear Thought Content: Bizarre thinking Hallucination Type: None Delusion Type: Paranoid Suicidal Ideation: No Suicidal Plan: No Suicidal Intention: No Homicidal Ideation: No Homicidal Plan: No Homicidal Intention: No Insight: Poor Judgment: Poor Assessment and Plan - Assessment (1) Schizoaffective disorder Code(s): F25.9 - Schizoaffective disorder, unspecified Status: Acute - Plan Plan: continue to try to obtain [facility]. Continue hospitalization for safety. Justification for Continued Inpatient Stay: impairments in safety Request Healthcare Surrogate/Guardian Advocate?: Yes (1) Schizoaffective disorder Qualifiers: Schizoaffective disorder type: bipolar Qualified Code(s): F25.0 - Schizoaffective disorder, bipolar type
[2018-03-21] MEDS ORDERED: risperiDONE 1 MG ODT PO ONE (13:38)
[2018-03-21] MEDS: ARIPiprazole 5 MG Tablet PO SCH (14:12)
[2018-03-21] MEDS ORDERED: OLANZapine 10 MG Tablet PO STA (20:13)
[2018-03-22] MEDS: Senna/Docusate Sodium 8.6/50 MG Tablet PO SCH ×3 (09:19→20:21)
[2018-03-22] MEDS: Acetaminophen 325 MG Tablet PO PRN (11:10)
--- NOTE | 2018-03-22 13:47 | P.PNPSY ---
Subjective Remarks: Pt seen and discussed with staff. She has remained labile and paranoid, but thought process is more organized and pt has been in better behavioral control. Pt gives a good history of past psychiatric medication treatment and states that she needs to "be on medications because I'm not able to stay right without it." Pt states that she tolerated yesterday's emergency dose of risperidone without side effects and felt that it helped calm her down. She states that thoughts are more clear today but "are still racing". She c/o of poor sleep and high anxiety. Pt demonstrates understanding of indication for medication tx, risks and benefits and potential side effects. She is judged at this time to demonstrate capacity to consent to medications. Discussed medication options with pt and pt consents to trial risperdal for jerry and psychosis. Mental Status Examination Appearance: Disheveled Consciousness: Alert Orientation: x4 Motor Activity: Normal gait Speech: Pressured, Rapid Language: Adequate Fund of Knowledge: Adequate Memory: Unremarkable Mood: Manic Affect: Labile Thought Process & Associations: Circumstantial (improved) Thought Content: Delusional Hallucination Type: None Delusion Type: Paranoid Suicidal Ideation: No Suicidal Plan: No Suicidal Intention: No Homicidal Ideation: No Homicidal Plan: No Homicidal Intention: No Insight: Poor Judgment: Poor Assessment and Plan - Assessment (1) Schizoaffective disorder Code(s): F25.9 - Schizoaffective disorder, unspecified Status: Acute - Plan Plan: Pt has capacity to consent to medications. Will start trial of risperdal and titrate to effective dose. Justification for Continued Inpatient Stay: impairments in safety Request Healthcare Surrogate/Guardian Advocate?: Yes (1) Schizoaffective disorder Qualifiers: Schizoaffective disorder type: bipolar Qualified Code(s): F25.0 - Schizoaffective disorder, bipolar type
[2018-03-22] MEDS: LORazepam 0.5 MG Tablet PO PRN (17:04)
[2018-03-22] MEDS: traZODone 50 MG Tablet PO PRN (20:21)
[2018-03-23] MEDS: Senna/Docusate Sodium 8.6/50 MG Tablet PO SCH ×2 (08:15→21:18)
[2018-03-23] MEDS: LORazepam 0.5 MG Tablet PO PRN ×2 (08:16→17:11)
--- NOTE | 2018-03-23 15:13 | P.PNPSY ---
Subjective Remarks: Patient seen in day room dosing on the couch. Patient did not need an DTO this morning for out of control behavior. She continues to pound on the window be quite insulting making threatening gestures towards the nursing staff. When I started to talk with patient she became quite angry and profane at me wanting to be "left alone" will increase Resporal to 2 mg twice daily Review of Systems All other systems reviewed negative except as stated in HPI Mental Status Examination Appearance: Disheveled Consciousness: Alert Orientation: x4 Motor Activity: Normal gait Speech: Pressured, Rapid Language: Adequate Fund of Knowledge: Adequate Memory: Unremarkable Mood: Manic Affect: Labile Thought Process & Associations: Circumstantial (improved) Thought Content: Delusional Hallucination Type: None Delusion Type: Paranoid Suicidal Ideation: No Suicidal Plan: No Suicidal Intention: No Homicidal Ideation: No Homicidal Plan: No Homicidal Intention: No Insight: Poor Judgment: Poor Assessment and Plan - Assessment (1) Schizoaffective disorder Code(s): F25.9 - Schizoaffective disorder, unspecified Status: Acute - Plan Plan: Patient continues quite psychotic delusional paranoid aggressive intimidating with no insight please see medication adjustment above Justification for Continued Inpatient Stay: At this point patient would decompensate a place to a lower level of care Discharge Planning: To be determined Request Healthcare Surrogate/Guardian Advocate?: Yes (1) Schizoaffective disorder Qualifiers: Schizoaffective disorder type: bipolar Qualified Code(s): F25.0 - Schizoaffective disorder, bipolar type
[2018-03-24] MEDS: Senna/Docusate Sodium 8.6/50 MG Tablet PO SCH ×2 (08:18→20:53)
--- NOTE | 2018-03-24 13:11 | P.PNPSY ---
Subjective Remarks: Patient seen in her room with nurse Emmy patient initially laying on her bed with covers over her head no when I introduced myself she said upon side of the bed patient continues intense low vigilant though softer than the past few days. She still shows little insight into her disease. Is somewhat reluctant to acknowledge the efficacy of the medications. She does want to be discharged today. Though I feel patient is not stabilized to the point where she would be safe to discharge. For now we will continue medications no change Review of Systems All other systems reviewed negative except as stated in HPI Mental Status Examination Appearance: Disheveled Consciousness: Alert Orientation: x4 Motor Activity: Normal gait Speech: Pressured (Slightly slower), Rapid (Slightly slower) Language: Adequate Fund of Knowledge: Adequate Attention and Concentration: Adequate (Fair) Memory: Unremarkable Mood: Irritable, Manic Affect: Other (Increased range and intensity) Thought Process & Associations: Circumstantial (Improving) Thought Content: Delusional Hallucination Type: None Delusion Type: Paranoid (Improving) Suicidal Ideation: No Suicidal Plan: No Suicidal Intention: No Homicidal Ideation: No Homicidal Plan: No Homicidal Intention: No Insight: Poor Judgment: Poor Assessment and Plan - Assessment (1) Schizoaffective disorder Code(s): F25.9 - Schizoaffective disorder, unspecified Status: Acute - Plan Plan: Patient is intensity range of her affect is improving, her paranoia and lability are softening. She is compliant with her medication. For now continue treatment Justification for Continued Inpatient Stay: At this time patient would decompensate a place to the lower level of care Discharge Planning: To be determined Request Healthcare Surrogate/Guardian Advocate?: Yes (1) Schizoaffective disorder Qualifiers: Schizoaffective disorder type: bipolar Qualified Code(s): F25.0 - Schizoaffective disorder, bipolar type
[2018-03-24] MEDS: traZODone 50 MG Tablet PO PRN (20:53)
[2018-03-25] MEDS: Senna/Docusate Sodium 8.6/50 MG Tablet PO SCH (09:16)
[2018-03-25] MEDS ORDERED: Paliperidone Inj 234 MG/1.5 ML Syringe IM SCH (09:30)
[2018-03-25] MEDS ORDERED: fentaNYL Citrate Inj 100 MCG/2 ML Ampul ONE (10:19)
--- NOTE | 2018-03-25 14:24 | P.DSPSY ---
Psychiatry Discharge Summary Inpatient Psychiatric care?: Yes Advance Directives: No Reason for Unknown:: Other Mental Health Advance Directive: No Health Care Proxy: No - Admission Admission Date: March 18, 2018 10:28 - Admission Diagnosis (1) Schizoaffective disorder Code(s): F25.9 - Schizoaffective disorder, unspecified Brief History: The patient is 37-year-old -[place] woman, domiciled along in [facility], single, mother of 4 kids in the foster care system, unemployed, supported by [facility] , with psychiatric history of schizophrenia versus schizoaffective disorder, cocaine use disorder, previous psychiatric hospitalizations, previous suicide attempts, the last hospitalization was here at [facility] in January 2018 under the care of Dr. Moreno, documentation review, the patient was discharged by court from the hospitalization, the patient is not in psychotropics at the moment, medical history of lumbar pain,who presents emergency department under [place] act for psychiatric evaluation. Patient apparently has not been taking her medications. Patient was threatening to burn down the apartment complex where she resides. She continued to threaten to want to hurt people on her way into the emergency department with police. Patient was aggressive and uncooperative upon arrival. She was medicated for this with Zyprexa 10 mg IM. EMR reviewed. The case was discussed with the ER staff. On the psychiatric evaluation I find a patient that is poorly cooperative, very irritable, requesting to be discharged. She says that she has to leave "because those people are going to find me whatever I am". Patient says that "if they continue getting him away I am going to really burn the building". The patient says that she prefers not to talk about it. She seems quite suspicious, internally preoccupied. She denies symptomatology of depression, denies anxiety , she denies suicidal and homicidal at the moment, she denies visual and auditory hallucinations. I asked her to give me blood and urine in order to help me to make a final decision about her disposition, but when she was about to have her blood drawn she verbalized to the nurse "are you telling to those people what I am doing?". The patient is oriented 3. After she was medicated , she remained calm, no behavioral dysregulation or aggressive behavior reported in the last 12 hours. No collateral information available. Tobacco Use In Past 30 Days: Yes How Often Do You Have a Drink Containing Alcohol: Unable to Obtain Hospital Course: Patient's hospital course was somewhat uneventful Global stressful due to patient's irritability intrusiveness noncompliance initially with medication, and anger. Over these did soften with increased compliance medication especially with her Resporal. Today patient denies suicidality homicidality voice or visions she is willing to take the in [place] sustain a to 34 mg IM today and q. 28 days. Thus patient to be discharged today follow-up Billy Nadja castillo with Rx 1 month in the injection next - Discharge Discharge Date: 03/25/18 - Discharge Diagnosis (1) Schizoaffective disorder Diagnosis: Principal Code(s): F25.9 - Schizoaffective disorder, unspecified Status: Acute Discharge Disposition: Home - Discharge Instructions Discharge Diet: Regular Diet Activities You Can Perform: Regular- No Restrictions - Discharge Time > 30 minutes Mental Status Examination Appearance: Disheveled Consciousness: Alert Orientation: x4 Motor Activity: Normal gait Speech: Pressured (Slightly slower), Rapid (Slightly slower) Language: Adequate Fund of Knowledge: Adequate Attention and Concentration: Adequate (Fair) Memory: Unremarkable Mood: Irritable, Manic Affect: Other (Increased range and intensity) Thought Process & Associations: Circumstantial (Improving) Thought Content: Delusional Hallucination Type: None Delusion Type: Paranoid (Improving) Suicidal Ideation: No Suicidal Plan: No Suicidal Intention: No Homicidal Ideation: No Homicidal Plan: No Homicidal Intention: No Insight: Poor Judgment: Poor Discharge/Advance Care Plan - Results Vital Signs: Last Vital Signs Temp 97.4 F L 03/24/18 06:00 Pulse 86 03/24/18 06:00 Resp 16 03/24/18 06:00 BP 133/77 03/24/18 06:00 Pulse Ox 98 03/24/18 06:00 Lab Results: Laboratory Results Hemoglobin A1c 6.1 % (4.3-6.0) H 03/19/18 09:37 Triglycerides 84 mg/dL (42-150) 03/19/18 09:37 Cholesterol 141 mg/dL (120-200) 03/19/18 09:37 LDL Cholesterol, Calc 81 mg/dL (0-99) 03/19/18 09:37 HDL Cholesterol 43.6 mg/dL (40.0-60.0) 03/19/18 09:37 TSH 0.898 uIU/mL (0.358-3.740) 03/18/18 11:08 Summary of Procedures: None done Pending Results: None - Medications Number of antipsychotic medications at discharge: 1 - Discharge Care Plan Goals to Promote Your Health: * To prevent worsening of your condition and complications * To maintain your health at the optimal level Directions to Meet Your Goals: Take your medications as prescribed Follow your dietary instruction Follow activity as directed Keep your appointments as scheduled Take your immunizations and boosters as scheduled If your symptoms worsen call your PCP, if no PCP go to Urgent Care Center or Emergency Room For 07/04 questions related to your inpatient stay or results of tests pending at discharge, please contact Dr. Davion Weiss MD at Smoking is Dangerous to Your Health. Avoid second hand smoking (1) Schizoaffective disorder Qualifiers: Schizoaffective disorder type: bipolar Qualified Code(s): F25.0 - Schizoaffective disorder, bipolar type (1) Schizoaffective disorder Qualifiers: Schizoaffective disorder type: bipolar Qualified Code(s): F25.0 - Schizoaffective disorder, bipolar type
== END 2018-03-25 11:15 | disposition home or self-care (01) ==
LOC: NEDAMB 22:53 → NEDA 03-18 10:28 → H270 03-18 14:30
PROVIDERS: ADMIT Psychiatry & Neurology Psychiatry; ATTEND Psychiatry & Neurology Psychiatry